=== PATIENT | male | born 1965 | race Caucasian/White ===

== ENCOUNTER 2024-05-08 03:49 | Emergency (ER) | payer MEDICAID ==
[~2024-05-08] VITALS: Ht 172.7 cm; Wt 72.6 kg
[~2024-05-08 03:49] MED LIST: CIPR500T5 PO; METR-147 PO
[2024-05-08] MEDS ORDERED: ONDANSETRON HCL/PF 4 MG/2 ML VIAL ONE ×2 (04:19→05:32)
[2024-05-08] MEDS ORDERED: DICYCLOMINE HCL INJ 20 MG/2 ML AMPUL IM ONE (04:19)
[2024-05-08 04:22] LABS: BASOPHILS # (AUTO) 0.1 K/uL (0.0-0.2); BASOPHILS % (AUTO) 0.9 % (0.0-2.0); EOSINOPHILS % (AUTO) 0.1 % (0.0-6.0); HEMATOCRIT 36 % (39-51); HEMOGLOBIN 12.8 g/dL (13.5-17.5); LYMPHOCYTES # (AUTO) 1.3 K/uL (0.8-4.8); LYMPHOCYTES % (AUTO) 12.2 % (20.0-44.0); MEAN CORPUSCULAR HEMOGLOBIN 30 PG (26.0-33.0); MEAN CORPUSCULAR HGB CONC 35 g/dl (31.0-36.0); MEAN CORPUSCULAR VOLUME 86 fL (80-96); MONOCYTES # (AUTO) 0.5 K/uL (0.1-1.30); MONOCYTES % (AUTO) 4.8 % (2.0-12.0); NEUTROPHILS # (AUTO) 8.6 K/uL (1.8-8.9); PLATELET COUNT (AUTO) 220 K/uL (150-450); RED BLOOD CELL COUNT(AUTO) 4.25 MIL/uL (4.5-6.0); RED CELL DISTRIBUTION WIDTH 13.1 % (11.5-15.0); WHITE BLOOD COUNT (AUTO) 10.4 K/uL (4.3-11.0)
[2024-05-08] MEDS: DICYCLOMINE HCL INJ 20 MG/2 ML AMPUL IM ONE (04:26)
[2024-05-08] MEDS: IV NS 0.9% 1,000 ML BAG IV ONE (04:26)
[2024-05-08] MEDS: ONDANSETRON HCL/PF 4 MG/2 ML VIAL IVP ONE (04:26)
[2024-05-08 04:36] LABS: BILIRUBIN,DIRECT 0.2 mg/dL (0.0-0.2); CALCIUM, SERUM 9.4 mg/dL (8.5-10.1); CREATININE 1.6 mg/dL (0.6-1.3); POTASSIUM 3.9 mmol/L (3.5-5.1); TOTAL PROTEIN, SERUM 6.9 g/dL (6.4-8.2)
[2024-05-08] MEDS ORDERED: MORPHINE SULFATE INJ 4 MG/ML DISP.SYRIN ONE (04:54)
[2024-05-08] MEDS: MORPHINE SULFATE INJ 2 MG/ML DISP.SYRIN IV ONE ×2 (04:57→05:41)
[2024-05-08 05:26] LABS: APPEARANCE,URINE CLEAR (CLEAR); BILIRUBIN,URINE 1+ (NEGATIVE); BLOOD, URINE 2+ Ery/uL (NEGATIVE); COLOR,URINE YELLOW (YELLOW); KETONES,URINE 2+ mg/dL (NEGATIVE); LEUKOCYTE ESTERASE ,URINE NEGATIVE (NEGATIVE); NITRITE, URINE NEGATIVE (NEGATIVE); PH,URINE 6.5 (5.0-8.0); PROTEIN,URINE 3+ mg/dl (NEGATIVE); UGLUCOSE TRACE mg/dL (NEGATIVE); UROBILINOGEN,URINE 0.2 EU/dL (0.2)
[2024-05-08] MEDS: ONDANSETRON HCL/PF 4 MG/2 ML VIAL IV ONE (05:34)
[2024-05-08] MEDS ORDERED: MORPHINE SULFATE INJ 2 MG/ML DISP.SYRIN ONE (05:37)
[2024-05-08 05:39] LABS: ADD URINE CULTURE NO; BACTERIA,URINE Rare /HPF (None Seen); SQUAMOUS EPITHELIAL CELL,UR Few /HPF (None Seen); WBC,URINE 0-2 /HPF (0-3)
[2024-05-08 09:29] VITALS: BP 182/90; TEMP 98.2; O2SAT 99
[2024-05-09] MEDS ORDERED: ONDA4TAB11 PO (12:14)
[2024-05-09] MEDS ORDERED: BENA40TA8 PO (12:14)
[2024-05-09] MEDS ORDERED: BRIM5DRO11 EACHEYE (12:14)
[2024-05-09] MEDS ORDERED: DORZ10DR11 EACHEYE (12:14)
[2024-05-09] MEDS ORDERED: LATA2.5D15 EACHEYE (12:14)
[2024-05-09] MEDS ORDERED: INSU100I26 SQ (12:14)
[2024-05-09] MEDS ORDERED: ATRO2DRO4 RIGHTEYE (20:42)
== END 2024-05-08 09:35 | disposition home or self-care (01) ==
LOC: ER 04:02
DX: R10.9 Unspecified abdominal pain (principal); R11.2 Nausea with vomiting, unspecified; E11.9 Type 2 diabetes mellitus without complications; I10 Essential (primary) hypertension
CPT/HCPCS: 99285; 74176; 96374; 71045; 96361; 96375; 93005; 82803; 96376; 85025; 80048; 82010; 83690; 80076; 81001; 36415; 84484 ×2; 82962; 36600; 96372; J2270 ×2; J2405 ×2; J7030; J0500

== ENCOUNTER 2024-05-09 01:41 | Inpatient (IN) | payer MEDICAID ==
[~2024-05-09] VITALS: Ht 172.7 cm; Wt 77.1 kg
[2024-05-09] MEDS ORDERED: ONDANSETRON HCL/PF 4 MG/2 ML VIAL ONE (02:11)
[2024-05-09] MEDS ORDERED: PANTOPRAZOLE 40 MG VIAL ONE (02:11)
[2024-05-09] MEDS: PANTOPRAZOLE 40 MG VIAL IV ONE (02:22)
[2024-05-09] MEDS: IV NS 0.9% 1,000 ML IV ONE ×2 (02:22→03:30)
[2024-05-09] MEDS: ONDANSETRON HCL/PF - ER 4 MG/2 ML VIAL IV ONE (02:22)
[2024-05-09 02:24] LABS: BASOPHILS # (AUTO) 0.1 K/uL (0.0-0.2); BASOPHILS % (AUTO) 0.5 % (0.0-2.0); EOSINOPHILS % (AUTO) 0.2 % (0.0-6.0); HEMATOCRIT 36 % (39-51); HEMOGLOBIN 12.8 g/dL (13.5-17.5); LYMPHOCYTES # (AUTO) 1.2 K/uL (0.8-4.8); LYMPHOCYTES % (AUTO) 11.9 % (20.0-44.0); MEAN CORPUSCULAR HEMOGLOBIN 30 PG (26.0-33.0); MEAN CORPUSCULAR HGB CONC 36 g/dl (31.0-36.0); MEAN CORPUSCULAR VOLUME 85 fL (80-96); MONOCYTES # (AUTO) 0.7 K/uL (0.1-1.30); MONOCYTES % (AUTO) 6.7 % (2.0-12.0); NEUTROPHILS # (AUTO) 8.2 K/uL (1.8-8.9); NEUTROPHILS % (AUTO) 80.7 % (43.0-81.0); PLATELET COUNT (AUTO) 220 K/uL (150-450); RED BLOOD CELL COUNT(AUTO) 4.22 MIL/uL (4.5-6.0); RED CELL DISTRIBUTION WIDTH 13.1 % (11.5-15.0); WHITE BLOOD COUNT (AUTO) 10.2 K/uL (4.3-11.0)
[2024-05-09] MEDS: hydrALAZINE HCL IV 20 MG VIAL IV ONE (02:30)
[2024-05-09] MEDS ORDERED: hydrALAZINE HCL IV 20 MG VIAL ONE (02:31)
[2024-05-09 02:35] LABS: CALCIUM, SERUM 9.3 mg/dL (8.5-10.1); CARBON DIOXIDE 30 mmol/L (21-32); CHLORIDE 103 mmol/L (98-107); CREATININE 1.7 mg/dL (0.6-1.3); GLUCOSE 296 mg/dL (74-106); SODIUM SERUM 140 mmol/L (136-145); UREA NITROGEN, BLOOD 25 mg/dL (7-18)
[2024-05-09 02:40] LABS: ALANINE AMINOTRANSFERASE 14 U/L (12-78); ALBUMIN 2.9 g/dL (3.4-5.0); ALCOHOL, BLOOD < 3 mg/dL (0-10); ALKALINE PHOSPHATASE 72 U/L (46-116); ASPARTATE AMINOTRANSFERASE 17 U/L (15-37); LIPASE 61 U/L (16-77); TOTAL PROTEIN, SERUM 6.7 g/dL (6.4-8.2)
[2024-05-09 02:44] LABS: LACTIC ACID 2.5 mmol/L (0.4-2.0)
[2024-05-09] MEDS ORDERED: KETOROLAC TROMETHAMINE INJ 30 MG/ML VIAL ONE (03:21)
[2024-05-09] MEDS: KETOROLAC TROMETHAMINE INJ 30 MG/ML VIAL IV ONE (03:22)
[2024-05-09] MEDS ORDERED: METOCLOPRAMIDE HCL 10 MG/2 ML VIAL ONE (04:00)
[2024-05-09] MEDS: METOCLOPRAMIDE HCL 10 MG/2 ML VIAL IV ONE (04:05)
[2024-05-09] MEDS ORDERED: CEFTRIAXONE 1GM BAG (ER ONLY) 50 ML IV ONE (04:26)
[2024-05-09] MEDS: CEFTRIAXONE 1 G in IV D5W 50 ML IV ONE (04:30)
[2024-05-09 04:46] LABS: APPEARANCE,URINE CLEAR (CLEAR); BILIRUBIN,URINE NEGATIVE (NEGATIVE); BLOOD, URINE 3+ Ery/uL (NEGATIVE); COLOR,URINE YELLOW (YELLOW); KETONES,URINE 1+ mg/dL (NEGATIVE); LEUKOCYTE ESTERASE ,URINE NEGATIVE (NEGATIVE); NITRITE, URINE NEGATIVE (NEGATIVE); PH,URINE 6.5 (5.0-8.0); PROTEIN,URINE 3+ mg/dl (NEGATIVE); UGLUCOSE 3+ mg/dL (NEGATIVE); UROBILINOGEN,URINE 0.2 EU/dL (0.2)
[2024-05-09 05:16] LABS: ADD URINE CULTURE NO; BACTERIA,URINE None seen /HPF (None Seen); MUCUS,URINE Many /LPF (None Seen); SQUAMOUS EPITHELIAL CELL,UR None Seen /HPF (None Seen); WBC,URINE NONE SEEN /HPF (0-3)
[2024-05-09 05:19] LABS: AMPHETAMINE, URINE NEGATIVE (NEGATIVE); BARBITURATE, URINE NEGATIVE (NEGATIVE); BENZODIAZEPINE, URINE NEGATIVE (NEGATIVE); CANNABINOID, URINE NEGATIVE (NEGATIVE); COCCAINE, URINE NEGATIVE (NEGATIVE); PHENCYCLIDINE SCREEN,URINE NEGATIVE (NEGATIVE)
[2024-05-09 05:47] LABS: OPIATE, URINE POSITIVE (NEGATIVE)
[2024-05-09] MEDS ORDERED: LABETALOL HCL IV 100MG VIAL ONE (08:00)
[2024-05-09] MEDS ORDERED: MORPHINE SULFATE INJ 4 MG/ML DISP.SYRIN ONE (08:07)
[2024-05-09] MEDS: LABETALOL 20 MG/4 ML VIAL IV ONE (08:22)
[2024-05-09] MEDS: MORPHINE SULFATE INJ 2 MG/ML DISP.SYRIN IM ONE (08:23)
[2024-05-09] MEDS ORDERED: DEXTROSE 50%-WATER 50 ML DISP.SYRIN IV PRN (11:30)
[2024-05-09] MEDS ORDERED: BRIM5DRO11 EACHEYE (12:14)
[2024-05-09] MEDS ORDERED: DORZ10DR11 EACHEYE (12:14)
[2024-05-09] MEDS ORDERED: INSU100I26 SQ (12:14)
[2024-05-09] MEDS ORDERED: BENA40TA8 PO (12:14)
[2024-05-09] MEDS ORDERED: ONDA4TAB11 PO (12:14)
[2024-05-09] MEDS ORDERED: LATA2.5D15 EACHEYE (12:14)
[2024-05-09] MEDS: BLOOD SUGAR DIAGNOSTIC 1 EACH STRIP IN SCH (12:44)
[2024-05-09] MEDS ORDERED: ENOXAPARIN SODIUM 40 MG/0.4 ML DISP.SYRIN SQ ONE (13:02)
[2024-05-09] MEDS ORDERED: BENAZEPRIL HCL 10 MG TABLET ONE (13:02)
[2024-05-09] MEDS: ENOXAPARIN SODIUM 40 MG/0.4 ML DISP.SYRIN SQ SCH (13:06)
[2024-05-09] MEDS: BENAZEPRIL HCL 10 MG TABLET PO ONE (13:06)
[2024-05-09 13:45] VITALS: BP 170/95; TEMP 98.2; O2SAT 97
[2024-05-09] MEDS: PANTOPRAZOLE 40 MG VIAL IV SCH (14:44)
[2024-05-09] MEDS: IV NS 0.9% 1,000 ML IV PRN (14:47)
[2024-05-09] MEDS: ONDANSETRON HCL/PF 4 MG/2 ML VIAL IVP PRN (15:50)
[2024-05-09 16:28] VITALS: BP 178/87; TEMP 99; O2SAT 99
[2024-05-09] MEDS: INSULIN REGULAR, HUMAN 100 UNIT/ML 3 ML VIAL SQ PRN (16:45)
[2024-05-09] MEDS: hydrALAZINE HCL 25 MG TABLET PO ONE (17:30)
[2024-05-09] MEDS: ACETAMINOPHEN 325 MG TABLET PO PRN (17:34)
[2024-05-09 20:00] VITALS: BP 121/58; TEMP 99.3; O2SAT 98
[2024-05-09] MEDS: MORPHINE SULFATE INJ 2 MG/ML DISP.SYRIN IV PRN (20:01)
[2024-05-09 20:19] VITALS: BP 121/58; TEMP 99.3; O2SAT 98
[2024-05-09] MEDS ORDERED: ATRO2DRO4 RIGHTEYE (20:42)
[2024-05-09] MEDS: INSULIN GLARGINE, 100 UNIT/ML CARTRIDGE SQ SCH (21:25)
[2024-05-10] MEDS ORDERED: CEFTRIAXONE 1GM BAG (ER ONLY) 50 ML IV ONE (03:21)
[2024-05-10] MEDS: CEFTRIAXONE 1 G in IV D5W 50 ML IV SCH (03:49)
[2024-05-10 06:15] LABS: BASOPHILS # (AUTO) 0.1 K/uL (0.0-0.2); EOSINOPHILS # (AUTO) 0.1 K/uL (0.0-0.7); EOSINOPHILS % (AUTO) 1.1 % (0.0-6.0); HEMATOCRIT 29 % (39-51); HEMOGLOBIN 10.3 g/dL (13.5-17.5); LYMPHOCYTES # (AUTO) 1.9 K/uL (0.8-4.8); LYMPHOCYTES % (AUTO) 23.1 % (20.0-44.0); MEAN CORPUSCULAR HEMOGLOBIN 31 PG (26.0-33.0); MEAN CORPUSCULAR HGB CONC 36 g/dl (31.0-36.0); MEAN CORPUSCULAR VOLUME 86 fL (80-96); MONOCYTES # (AUTO) 0.8 K/uL (0.1-1.30); MONOCYTES % (AUTO) 9.1 % (2.0-12.0); NEUTROPHILS # (AUTO) 5.5 K/uL (1.8-8.9); NEUTROPHILS % (AUTO) 65.7 % (43.0-81.0); PLATELET COUNT (AUTO) 171 K/uL (150-450); RED BLOOD CELL COUNT(AUTO) 3.33 MIL/uL (4.5-6.0); RED CELL DISTRIBUTION WIDTH 12.9 % (11.5-15.0); WHITE BLOOD COUNT (AUTO) 8.3 K/uL (4.3-11.0)
[2024-05-10 06:32] LABS: CALCIUM, SERUM 8.2 mg/dL (8.5-10.1); CREATININE 1.6 mg/dL (0.6-1.3); MAGNESIUM 2.1 mg/dL (1.8-2.4); PHOSPHORUS 3.6 mg/dL (2.5-4.9); POTASSIUM 3.2 mmol/L (3.5-5.1)
[2024-05-10 07:00] VITALS: BP 155/84; TEMP 99; O2SAT 99
[2024-05-10] MEDS: PANTOPRAZOLE 40 MG TABLET.DR PO SCH (08:32)
[2024-05-10] MEDS ORDERED: POTASSIUM CHLORIDE 20 MEQ TAB.PRT.SR PO ONE (09:00)
[2024-05-10] MEDS ORDERED: POTASSIUM CHLORIDE 10 MEQ/50 ML PREMIXED IVPB FOR PERIPHERAL LINE IV ONE (09:00)
[2024-05-10] MEDS: IV NS 0.9% 1,000 ML IV PRN (09:37)
[2024-05-10] MEDS: POTASSIUM CHLORIDE 20 MEQ POWDER PACKET PO ONE (09:38)
[2024-05-10] MEDS: ATROPINE SULFATE OPHTH SOLN 15 ML BOTTLE RIGHTEYE SCH (09:39)
[2024-05-10] MEDS: TIMOLOL MAL/DORZOLAM HCL OPHTH 10 ML BOTTLE EACHEYE SCH (09:40)
[2024-05-10] MEDS: PIPERACILLIN /TAZOBACTAM 3.375 G in IV D5W 50 ML IV SCH (11:38)
[2024-05-10 16:00] VITALS: BP 190/101; TEMP 98.2; O2SAT 98
[2024-05-10] MEDS: BRIMONIDINE TARTRATE OPHT SOLN 5 ML BOTTLE EACHEYE SCH (16:27)
[2024-05-10] MEDS: CLONIDINE HCL 0.1 MG TABLET PO PRN (17:35)
[2024-05-10 20:00] VITALS: BP 187/98; TEMP 97.9; O2SAT 99
[2024-05-10] MEDS: AMLODIPINE BESYLATE 5 MG TABLET PO ONE (20:54)
[2024-05-10] MEDS: LATANOPROST EYE DROP 0.005% 2.5 ML BOTTLE EACHEYE SCH (21:06)
[2024-05-10] MEDS: INSULIN GLARGINE, 100 UNIT/ML CARTRIDGE SQ SCH (21:25)
[2024-05-10] MEDS: TAMSULOSIN 0.4 MG CAP.SR.24H PO SCH (22:24)
[2024-05-10 23:37] LABS: APPEARANCE,URINE CLEAR (CLEAR); BILIRUBIN,URINE NEGATIVE (NEGATIVE); BLOOD, URINE 1+ Ery/uL (NEGATIVE); COLOR,URINE YELLOW (YELLOW); KETONES,URINE NEGATIVE (NEGATIVE); LEUKOCYTE ESTERASE ,URINE NEGATIVE (NEGATIVE); NITRITE, URINE NEGATIVE (NEGATIVE); PROTEIN,URINE 2+ mg/dl (NEGATIVE); UGLUCOSE TRACE mg/dL (NEGATIVE); UROBILINOGEN,URINE 0.2 EU/dL (0.2)
[2024-05-10 23:40] LABS: ADD URINE CULTURE NO; BACTERIA,URINE Rare /HPF (None Seen); SQUAMOUS EPITHELIAL CELL,UR Rare /HPF (None Seen); WBC,URINE 0-2 /HPF (0-3)
[2024-05-11 00:10] VITALS: BP 143/79; TEMP 98.2; O2SAT 100
[2024-05-11 06:37] LABS: BASOPHILS # (AUTO) 0.1 K/uL (0.0-0.2); BASOPHILS % (AUTO) 0.8 % (0.0-2.0); EOSINOPHILS # (AUTO) 0.2 K/uL (0.0-0.7); EOSINOPHILS % (AUTO) 2.9 % (0.0-6.0); HEMATOCRIT 28 % (39-51); LYMPHOCYTES # (AUTO) 1.7 K/uL (0.8-4.8); LYMPHOCYTES % (AUTO) 20.7 % (20.0-44.0); MEAN CORPUSCULAR HEMOGLOBIN 30 PG (26.0-33.0); MEAN CORPUSCULAR HGB CONC 35 g/dl (31.0-36.0); MEAN CORPUSCULAR VOLUME 85 fL (80-96); MONOCYTES # (AUTO) 0.6 K/uL (0.1-1.30); MONOCYTES % (AUTO) 7.1 % (2.0-12.0); NEUTROPHILS # (AUTO) 5.7 K/uL (1.8-8.9); NEUTROPHILS % (AUTO) 68.5 % (43.0-81.0); PLATELET COUNT (AUTO) 159 K/uL (150-450); RED BLOOD CELL COUNT(AUTO) 3.33 MIL/uL (4.5-6.0); RED CELL DISTRIBUTION WIDTH 13.2 % (11.5-15.0); WHITE BLOOD COUNT (AUTO) 8.3 K/uL (4.3-11.0)
[2024-05-11 07:19] LABS: ALBUMIN 2.2 g/dL (3.4-5.0); BILIRUBIN,TOTAL 0.6 mg/dL (0.2-1.0); CALCIUM, SERUM 8.2 mg/dL (8.5-10.1); CREATININE 1.4 mg/dL (0.6-1.3); MAGNESIUM 1.8 mg/dL (1.8-2.4); POTASSIUM 3.2 mmol/L (3.5-5.1); TOTAL PROTEIN, SERUM 4.8 g/dL (6.4-8.2)
[2024-05-11 08:42] VITALS: BP 140/86; TEMP 98.9; O2SAT 97
[2024-05-11] MEDS ORDERED: AMLO10TA4 PO (09:30)
[2024-05-11] MEDS ORDERED: METR500T PO (09:30)
[2024-05-11] MEDS ORDERED: TAMS-12 PO (09:30)
[2024-05-11] MEDS ORDERED: CIPR500S3 PO (09:30)
[2024-05-11] MEDS: POTASSIUM CHLORIDE 20 MEQ TAB.PRT.SR PO ONE (09:35)
[2024-05-11 09:36] VITALS: BP 140/86
[2024-05-11] MEDS: AMLODIPINE BESYLATE 5 MG TABLET PO SCH (09:36)
== END 2024-05-11 15:15 | disposition home or self-care (01) | DRG 248 ==
LOC: ER 01:46 → MED 13:21
PROVIDERS: ADMIT Nurse Practitioner Acute Care; ATTEND Internal Medicine
DX: A04.9 Bacterial intestinal infection, unspecified (principal); N17.0 Acute kidney failure with tubular necrosis; E11.43 Type 2 diabetes mellitus with diabetic autonomic (poly)neuropathy; K31.84 Gastroparesis; Z20.822 Contact with and (suspected) exposure to COVID-19; H40.9 Unspecified glaucoma; E86.0 Dehydration; E87.6 Hypokalemia; Z79.4 Long term (current) use of insulin; I10 Essential (primary) hypertension; K22.9 Disease of esophagus, unspecified; Z98.890 Other specified postprocedural states; Z79.899 Other long term (current) drug therapy
CPT/HCPCS: 36415; 71045-TC; 76770-TC; 80048-TC; 80053-TC; 80061-TC; 81001; 82010-TC; 82962-TC; 83605-TC; 83690-TC; 83735-TC; 84100-TC; 85025-TC; 87040-TC; 87086-TC; A4223; G0378; G0480; J0360; J0696; J1650; J1815; J1885; J2270; J2405; J2470; J2543; J2765; J3490; J7030; J7060

== ENCOUNTER 2024-05-16 12:57 | Emergency (ER) | payer MEDICAID ==
[~2024-05-16] VITALS: Ht 172.7 cm; Wt 77.1 kg
[~2024-05-16 12:57] MED LIST changes: +AMLO10TA4 PO; +ATRO2DRO4 RIGHTEYE; +BRIM5DRO11 EACHEYE; +CIPR500S3 PO; -CIPR500T5 PO; +DORZ10DR11 EACHEYE; +INSU100I26 SQ; +LATA2.5D15 EACHEYE; +METR500T PO; +ONDA4TAB11 PO; +TAMS-12 PO
[2024-05-16] MEDS ORDERED: ONDANSETRON HCL/PF 4 MG/2 ML VIAL ONE ×2 (13:30→14:33)
[2024-05-16] MEDS: ONDANSETRON HCL/PF 4 MG/2 ML VIAL IVP ONE ×2 (13:38→14:36)
[2024-05-16] MEDS: IV NS 0.9% 1,000 ML BAG IV ONE (13:39)
--- NOTE | 2024-05-16 13:45 | NUR ---
Patient came in to the [facility] from home, c/o abd pain. Connected to the monitor and pulse ox, kept comfortable, will continue plan of care.
[2024-05-16 13:47] LABS: BASOPHILS # (AUTO) 0.1 K/uL (0.0-0.2); BASOPHILS % (AUTO) 0.8 % (0.0-2.0); EOSINOPHILS # (AUTO) 0.1 K/uL (0.0-0.7); EOSINOPHILS % (AUTO) 1.7 % (0.0-6.0); HEMATOCRIT 31 % (39-51); HEMOGLOBIN 11.1 g/dL (13.5-17.5); LYMPHOCYTES # (AUTO) 0.9 K/uL (0.8-4.8); LYMPHOCYTES % (AUTO) 14.5 % (20.0-44.0); MEAN CORPUSCULAR HEMOGLOBIN 31 PG (26.0-33.0); MEAN CORPUSCULAR HGB CONC 36 g/dl (31.0-36.0); MEAN CORPUSCULAR VOLUME 86 fL (80-96); MONOCYTES # (AUTO) 0.5 K/uL (0.1-1.30); MONOCYTES % (AUTO) 7.5 % (2.0-12.0); NEUTROPHILS # (AUTO) 4.8 K/uL (1.8-8.9); NEUTROPHILS % (AUTO) 75.5 % (43.0-81.0); PLATELET COUNT (AUTO) 172 K/uL (150-450); RED BLOOD CELL COUNT(AUTO) 3.59 MIL/uL (4.5-6.0); RED CELL DISTRIBUTION WIDTH 13.6 % (11.5-15.0); WHITE BLOOD COUNT (AUTO) 6.4 K/uL (4.3-11.0)
[2024-05-16 13:59] LABS: CALCIUM, SERUM 8.3 mg/dL (8.5-10.1); CREATININE 1.3 mg/dL (0.6-1.3); POTASSIUM 3.6 mmol/L (3.5-5.1)
[2024-05-16 14:05] LABS: ALBUMIN 2.5 g/dL (3.4-5.0); BILIRUBIN,DIRECT 0.1 mg/dL (0.0-0.2); BILIRUBIN,TOTAL 0.5 mg/dL (0.2-1.0); TOTAL PROTEIN, SERUM 5.6 g/dL (6.4-8.2)
[2024-05-16] MEDS ORDERED: CT SWABBABLE VALVE TRANS SET 1 EA INFUS.SET MC ONE (14:30)
[2024-05-16] MEDS ORDERED: IOHEXOL-300 100 ML VIAL IV ONE (14:30)
[2024-05-16] MEDS ORDERED: IV NS 0.9% 250 ML IV ONE (14:31)
[2024-05-16] MEDS ORDERED: KETOROLAC TROMETHAMINE 15 MG/ML VIAL ONE (14:33)
[2024-05-16] MEDS: KETOROLAC TROMETHAMINE 15 MG/ML VIAL IV ONE (14:35)
[2024-05-16 15:25] VITALS: BP 138/79; TEMP 97.8; O2SAT 98
[2024-05-16] MEDS ORDERED: AZIT500T4 PO (15:28)
[2024-05-16] MEDS ORDERED: KETO10TA2 PO (15:29)
[2024-05-16] MEDS ORDERED: METO-295 PO (15:29)
--- NOTE | 2024-05-16 15:36 | NUR ---
IV removed. Catheter intact and site benign. Pressure and 4x4 applied to site. No bleeding noted.Patient discharged to home in stable condition. Written and verbal after care instructions given. Patient verbalizes understanding of instruction.
== END 2024-05-16 15:38 | disposition home or self-care (01) ==
LOC: ER 13:04
DX: K52.9 Noninfective gastroenteritis and colitis, unspecified (principal); R10.9 Unspecified abdominal pain; R11.2 Nausea with vomiting, unspecified; I10 Essential (primary) hypertension; E11.9 Type 2 diabetes mellitus without complications; Z60.2 Problems related to living alone
CPT/HCPCS: 99285; 74177; 96374; 96361; 96375; 96376; 85025; 80048; 83690; 80076; 36415; J2405 ×2; J7030; J7050; Q9967; J1885

== ENCOUNTER 2024-06-06 11:10 | Emergency (ER) | payer MEDICAID ==
[~2024-06-06] VITALS: Ht 172.7 cm; Wt 78.5 kg
[~2024-06-06 11:10] MED LIST changes: +AZIT500T4 PO; +KETO10TA2 PO; +METO-295 PO
[2024-06-06 11:19] VITALS: TEMP 98
[2024-06-06] MEDS ORDERED: HYDROMORPHONE INJ 2 MG/ML DISP.SYRIN IV ONE (12:30)
[2024-06-06] MEDS ORDERED: MORPHINE SULFATE INJ 4 MG/ML DISP.SYRIN ONE (12:39)
[2024-06-06] MEDS ORDERED: ONDANSETRON HCL/PF 4 MG/2 ML VIAL ONE (12:39)
[2024-06-06] MEDS: IV NS 0.9% 1,000 ML BAG IV ONE ×2 (12:45→15:22)
[2024-06-06] MEDS: ONDANSETRON HCL/PF 4 MG/2 ML VIAL IVP ONE (12:45)
[2024-06-06] MEDS: MORPHINE SULFATE INJ 2 MG/ML DISP.SYRIN IV ONE (12:47)
[2024-06-06 12:56] LABS: CARBON DIOXIDE 26 mmol/L (21-32); CHLORIDE 99 mmol/L (98-107); CREATININE 1.4 mg/dL (0.6-1.3); GLUCOSE 302 mg/dL (74-106); POTASSIUM 4.2 mmol/L (3.5-5.1); SODIUM SERUM 139 mmol/L (136-145); UREA NITROGEN, BLOOD 26 mg/dL (7-18)
[2024-06-06 13:03] LABS: ALANINE AMINOTRANSFERASE 21 U/L (12-78); ALBUMIN 3.1 g/dL (3.4-5.0); ALKALINE PHOSPHATASE 68 U/L (46-116); ASPARTATE AMINOTRANSFERASE 34 U/L (15-37); BILIRUBIN,DIRECT 0.1 mg/dL (0.0-0.2); BILIRUBIN,TOTAL 1.2 mg/dL (0.2-1.0); LIPASE 44 U/L (16-77); TOTAL PROTEIN, SERUM 7.1 g/dL (6.4-8.2)
[2024-06-06 13:12] LABS: BASOPHILS # (AUTO) 0.1 K/uL (0.0-0.2); BASOPHILS % (AUTO) 0.9 % (0.0-2.0); EOSINOPHILS % (AUTO) 0.3 % (0.0-6.0); HEMATOCRIT 37 % (39-51); LYMPHOCYTES # (AUTO) 0.9 K/uL (0.8-4.8); LYMPHOCYTES % (AUTO) 10.5 % (20.0-44.0); MEAN CORPUSCULAR HEMOGLOBIN 30 PG (26.0-33.0); MEAN CORPUSCULAR HGB CONC 35 g/dl (31.0-36.0); MEAN CORPUSCULAR VOLUME 85 fL (80-96); MONOCYTES # (AUTO) 0.4 K/uL (0.1-1.30); MONOCYTES % (AUTO) 4.6 % (2.0-12.0); NEUTROPHILS % (AUTO) 83.7 % (43.0-81.0); PLATELET COUNT (AUTO) 238 K/uL (150-450); RED BLOOD CELL COUNT(AUTO) 4.31 MIL/uL (4.5-6.0); RED CELL DISTRIBUTION WIDTH 13.8 % (11.5-15.0); WHITE BLOOD COUNT (AUTO) 8.4 K/uL (4.3-11.0)
[2024-06-06] MEDS ORDERED: IV NS 0.9% 250 ML IV ONE (13:33)
[2024-06-06] MEDS ORDERED: CT SWABBABLE VALVE TRANS SET 1 EA INFUS.SET MC ONE (13:33)
[2024-06-06] MEDS ORDERED: IOHEXOL-300 100 ML VIAL IV ONE (13:33)
[2024-06-06] MEDS ORDERED: hydrALAZINE HCL IV 20 MG VIAL ONE ×2 (13:59→15:09)
[2024-06-06] MEDS: hydrALAZINE HCL IV 20 MG VIAL IV ONE (14:00)
[2024-06-06] MEDS: HYDROMORPHONE 1 MG/1 ML DISP.SYRIN IV ONE (15:00)
[2024-06-06] MEDS ORDERED: HYDROMORPHONE 1 MG/1 ML DISP.SYRIN ONE (15:00)
[2024-06-06] MEDS ORDERED: METOCLOPRAMIDE HCL 10 MG/2 ML VIAL ONE (15:09)
[2024-06-06] MEDS: METOCLOPRAMIDE HCL 10 MG/2 ML VIAL IV ONE (15:14)
[2024-06-06] MEDS ORDERED: diphenhydrAMINE HCL 50 MG/ML VIAL ONE (15:23)
[2024-06-06] MEDS: diphenhydrAMINE HCL 50 MG/ML VIAL IV ONE (15:26)
[2024-06-06] MEDS: hydrALAZINE HCL 10 MG TABLET PO ONE (15:30)
[2024-06-06] MEDS ORDERED: METO-295 PO (17:33)
[2024-06-06] MEDS ORDERED: ONDA4TAB5 PO (17:33)
[2024-06-06 17:42] VITALS: BP 124/78; O2SAT 95
== END 2024-06-06 17:43 | disposition home or self-care (01) ==
LOC: ER 11:18
DX: R10.10 Upper abdominal pain, unspecified (principal); R11.2 Nausea with vomiting, unspecified; R19.7 Diarrhea, unspecified; I10 Essential (primary) hypertension; E11.9 Type 2 diabetes mellitus without complications; Z60.2 Problems related to living alone
CPT/HCPCS: 99285; 74176; 96375; 96374; 71045; 96361; 93005; 85025; 80048; 83690; 80076; 36415; 84484 ×2; 82962; J1200; J0360; J2270; J2765; J2405; J7030; J7050; Q9967; J1170

== ENCOUNTER 2024-06-09 05:44 | Inpatient (IN) | payer MEDICAID ==
[~2024-06-09] VITALS: Ht 172.7 cm; Wt 64.4 kg
[~2024-06-09 05:44] MED LIST changes: +ONDA4TAB5 PO
[2024-06-09 06:17] LABS: BASOPHILS # (AUTO) 0.1 K/uL (0.0-0.2); BASOPHILS % (AUTO) 0.6 % (0.0-2.0); EOSINOPHILS % (AUTO) 0.2 % (0.0-6.0); HEMATOCRIT 40 % (39-51); LYMPHOCYTES # (AUTO) 1.4 K/uL (0.8-4.8); LYMPHOCYTES % (AUTO) 14.1 % (20.0-44.0); MEAN CORPUSCULAR HEMOGLOBIN 30 PG (26.0-33.0); MEAN CORPUSCULAR HGB CONC 35 g/dl (31.0-36.0); MEAN CORPUSCULAR VOLUME 85 fL (80-96); MONOCYTES # (AUTO) 0.5 K/uL (0.1-1.30); NEUTROPHILS # (AUTO) 7.8 K/uL (1.8-8.9); NEUTROPHILS % (AUTO) 80.1 % (43.0-81.0); PLATELET COUNT (AUTO) 267 K/uL (150-450); RED CELL DISTRIBUTION WIDTH 13.8 % (11.5-15.0); WHITE BLOOD COUNT (AUTO) 9.7 K/uL (4.3-11.0)
[2024-06-09] MEDS ORDERED: ONDANSETRON HCL/PF 4 MG/2 ML VIAL ONE (06:24)
[2024-06-09] MEDS ORDERED: PANTOPRAZOLE 40 MG VIAL ONE (06:24)
[2024-06-09 06:27] LABS: CALCIUM, SERUM 9.3 mg/dL (8.5-10.1); CREATININE 1.4 mg/dL (0.6-1.3); POTASSIUM 3.4 mmol/L (3.5-5.1)
[2024-06-09] MEDS: PANTOPRAZOLE 40 MG VIAL IV ONE (06:31)
[2024-06-09] MEDS: IV NS 0.9% 1,000 ML BAG IV ONE (06:31)
[2024-06-09] MEDS: ONDANSETRON HCL/PF 4 MG/2 ML VIAL IVP ONE (06:31)
[2024-06-09 06:33] LABS: ALBUMIN 3.1 g/dL (3.4-5.0); BILIRUBIN,DIRECT 0.2 mg/dL (0.0-0.2); BILIRUBIN,TOTAL 1.2 mg/dL (0.2-1.0); TOTAL PROTEIN, SERUM 6.9 g/dL (6.4-8.2)
[2024-06-09] MEDS: MAG HYDROX/AL HYDROX/SIMETH 30 ML UDC PO ONE (06:41)
[2024-06-09] MEDS ORDERED: MAG HYDROX/AL HYDROX/SIMETH 30 ML UDC ONE (06:41)
[2024-06-09] MEDS ORDERED: LIDOCAINE VISCOUS 2% UD 15 ML UDC ONE (06:41)
[2024-06-09] MEDS: LIDOCAINE VISCOUS 2% UD 15 ML UDC MM ONE (06:41)
[2024-06-09] MEDS ORDERED: LABETALOL HCL IV 100MG VIAL ONE (06:55)
[2024-06-09 06:57] LABS: INR 0.98 (0.91-1.10); PARTIAL THROMBOPLASTIN TIME 21.9 SEC (24.3-34.3); PROTHROMBIN TIME 10.4 SECS (9.2-11.1)
[2024-06-09] MEDS: LABETALOL 20 MG/4 ML VIAL IV ONE (06:58)
[2024-06-09] MEDS ORDERED: METOCLOPRAMIDE HCL 10 MG/2 ML VIAL ONE (09:00)
[2024-06-09] MEDS ORDERED: hydrALAZINE HCL IV 20 MG VIAL ONE (09:00)
[2024-06-09] MEDS: METOCLOPRAMIDE HCL 10 MG/2 ML VIAL IV ONE (09:00)
[2024-06-09] MEDS: hydrALAZINE HCL IV 20 MG VIAL IV ONE (09:05)
[2024-06-09] MEDS ORDERED: MORPHINE SULFATE INJ 4 MG/ML DISP.SYRIN ONE (10:15)
[2024-06-09] MEDS: MORPHINE SULFATE INJ 2 MG/ML DISP.SYRIN IV ONE (10:21)
[2024-06-09] MEDS ORDERED: BENA40TA8 PO (10:38)
[2024-06-09 10:40] LABS: APPEARANCE,URINE CLEAR (CLEAR); BILIRUBIN,URINE NEGATIVE (NEGATIVE); BLOOD, URINE 2+ Ery/uL (NEGATIVE); COLOR,URINE YELLOW (YELLOW); KETONES,URINE TRACE mg/dL (NEGATIVE); LEUKOCYTE ESTERASE ,URINE NEGATIVE (NEGATIVE); NITRITE, URINE NEGATIVE (NEGATIVE); PROTEIN,URINE 3+ mg/dl (NEGATIVE); UGLUCOSE 2+ mg/dL (NEGATIVE); UROBILINOGEN,URINE 0.2 EU/dL (0.2)
[2024-06-09 10:55] LABS: ADD URINE CULTURE NO; BACTERIA,URINE None seen /HPF (None Seen)
[2024-06-09 10:56] LABS: FINE GRANULAR CASTS,URINE Few /LPF (None Seen); HYALINE CASTS, URINE Few /LPF (None Seen); SQUAMOUS EPITHELIAL CELL,UR 0-2 /HPF (None Seen); TRICHOMONAS,URINE None Seen /HPF (None Seen); YEAST,URINE None Seen /HPF (None Seen)
[2024-06-09 10:57] LABS: MUCUS,URINE Many /LPF (None Seen)
[2024-06-09 11:02] LABS: AMPHETAMINE, URINE NEGATIVE (NEGATIVE); BARBITURATE, URINE NEGATIVE (NEGATIVE); BENZODIAZEPINE, URINE NEGATIVE (NEGATIVE); CANNABINOID, URINE NEGATIVE (NEGATIVE); COCCAINE, URINE NEGATIVE (NEGATIVE); OPIATE, URINE NEGATIVE (NEGATIVE); PHENCYCLIDINE SCREEN,URINE NEGATIVE (NEGATIVE)
[2024-06-09] MEDS ORDERED: DEXTROSE 50%-WATER 50 ML DISP.SYRIN IV PRN (14:00)
[2024-06-09] MEDS ORDERED: ONDANSETRON HCL/PF 4 MG/2 ML VIAL IV PRN (14:00)
[2024-06-09] MEDS ORDERED: *INSULIN REGULAR(HUMULIN R)HUM 100 UNIT/ML VIAL SQ PRN (14:00)
[2024-06-09] MEDS ORDERED: HYDROMORPHONE MDV 0.5 MG in IV D5W 50 ML IV PRN (14:00)
[2024-06-09] MEDS: TAMSULOSIN 0.4 MG CAP.SR.24H PO SCH (14:06)
[2024-06-09] MEDS: PANTOPRAZOLE 40 MG VIAL IV SCH (14:06)
[2024-06-09] MEDS: CLONIDINE HCL 0.1 MG TABLET PO PRN (15:04)
[2024-06-09] MEDS: HYDROCODONE/APAP 5/325MG TABLET PO PRN (15:04)
[2024-06-09 16:00] VITALS: BP 162/86; TEMP 98.6; O2SAT 97
[2024-06-09] MEDS: BRIMONIDINE TARTRATE OPHT SOLN 5 ML BOTTLE EACHEYE SCH (16:11)
[2024-06-09] MEDS: ATROPINE SULFATE OPHTH SOLN 15 ML BOTTLE RIGHTEYE SCH (16:11)
[2024-06-09] MEDS: TIMOLOL MAL/DORZOLAM HCL OPHTH 10 ML BOTTLE EACHEYE SCH (16:11)
[2024-06-09] MEDS: BLOOD SUGAR DIAGNOSTIC 1 EACH STRIP VI SCH (16:41)
[2024-06-09] MEDS: INSULIN REGULAR, HUMAN 100 UNIT/ML 3 ML VIAL SQ PRN (16:43)
[2024-06-09] MEDS ORDERED: BRIMONIDINE TARTRATE EACHEYE SCH ×4 (17:00)
[2024-06-09] MEDS ORDERED: ANESTHESIA TRAY IN PYXIS 1 EA TRAY MC ONE (19:32)
[2024-06-09] MEDS: INSULIN GLARGINE, 100 UNIT/ML CARTRIDGE SQ SCH (21:52)
[2024-06-09] MEDS: LATANOPROST EYE DROP 0.005% 2.5 ML BOTTLE EACHEYE SCH (21:54)
[2024-06-09] MEDS: ZOLPIDEM TARTRATE 5 MG TABLET PO PRN (22:29)
[2024-06-09 22:30] VITALS: BP 137/80; TEMP 97.7; O2SAT 98
[2024-06-10] VITALS: BP 127/74; TEMP 98.2; O2SAT 96
[2024-06-10] MEDS: METOCLOPRAMIDE HCL 10 MG/2 ML VIAL IV PRN (03:20)
[2024-06-10 04:37] VITALS: BP 138/82; TEMP 98.4; O2SAT 96
[2024-06-10 06:26] LABS: BASOPHILS # (AUTO) 0.1 K/uL (0.0-0.2); BASOPHILS % (AUTO) 0.7 % (0.0-2.0); EOSINOPHILS # (AUTO) 0.1 K/uL (0.0-0.7); EOSINOPHILS % (AUTO) 1.1 % (0.0-6.0); HEMATOCRIT 27 % (39-51); HEMOGLOBIN 9.9 g/dL (13.5-17.5); LYMPHOCYTES # (AUTO) 1.8 K/uL (0.8-4.8); LYMPHOCYTES % (AUTO) 25.6 % (20.0-44.0); MEAN CORPUSCULAR HEMOGLOBIN 31 PG (26.0-33.0); MEAN CORPUSCULAR HGB CONC 36 g/dl (31.0-36.0); MEAN CORPUSCULAR VOLUME 86 fL (80-96); MONOCYTES # (AUTO) 0.5 K/uL (0.1-1.30); MONOCYTES % (AUTO) 7.7 % (2.0-12.0); NEUTROPHILS # (AUTO) 4.5 K/uL (1.8-8.9); NEUTROPHILS % (AUTO) 64.9 % (43.0-81.0); PLATELET COUNT (AUTO) 189 K/uL (150-450); RED BLOOD CELL COUNT(AUTO) 3.19 MIL/uL (4.5-6.0); RED CELL DISTRIBUTION WIDTH 13.5 % (11.5-15.0); WHITE BLOOD COUNT (AUTO) 6.9 K/uL (4.3-11.0)
[2024-06-10 07:09] LABS: ALBUMIN 2.2 g/dL (3.4-5.0); BILIRUBIN,TOTAL 0.7 mg/dL (0.2-1.0); CALCIUM, SERUM 7.8 mg/dL (8.5-10.1); CREATININE 1.4 mg/dL (0.6-1.3); POTASSIUM 3.1 mmol/L (3.5-5.1); TOTAL PROTEIN, SERUM 4.9 g/dL (6.4-8.2)
[2024-06-10 07:30] VITALS: BP 141/82; TEMP 99; O2SAT 98
[2024-06-10] MEDS ORDERED: SUCR1TAB31 PO (08:25)
[2024-06-10] MEDS ORDERED: FERR-68 PO (08:25)
[2024-06-10] MEDS ORDERED: PANT40SU PO (08:25)
[2024-06-10] MEDS ORDERED: CEFTRIAXONE 1 G in IV D5W 50 ML IV SCH (08:30)
[2024-06-10] MEDS: POTASSIUM CHLORIDE 20 MEQ TAB.PRT.SR PO ONE (08:34)
[2024-06-10] MEDS: PANTOPRAZOLE 40 MG TABLET.DR PO SCH (08:34)
[2024-06-10 08:35] VITALS: BP 141/82
[2024-06-10] MEDS: LISINOPRIL (20MG) 20 MG TABLET PO SCH (08:35)
[2024-06-10] MEDS: CEFTRIAXONE 1 G in IV D5W 50 ML IV SCH (09:00)
[2024-06-10] MEDS: ACETAMINOPHEN 325 MG TABLET PO PRN (14:47)
== END 2024-06-10 15:47 | disposition home or self-care (01) | DRG 241 ==
LOC: ER 05:45 → TELE 11:42 → MED 06-10 15:21
PROVIDERS: ADMIT Internal Medicine; ATTEND Internal Medicine
PROC: 0DB68ZX Excision of Stomach, Via Natural or Artificial Opening Endoscopic, Diagnostic (ICD-10-PCS; principal; 2024-06-09)
DX: K29.71 Gastritis, unspecified, with bleeding (principal); N17.0 Acute kidney failure with tubular necrosis; E11.22 Type 2 diabetes mellitus with diabetic chronic kidney disease; N13.30 Unspecified hydronephrosis; E87.6 Hypokalemia; D50.0 Iron deficiency anemia secondary to blood loss (chronic); K20.90 Esophagitis, unspecified without bleeding; H40.9 Unspecified glaucoma; Z20.822 Contact with and (suspected) exposure to COVID-19; I12.9 Hypertensive chronic kidney disease with stage 1 through stage 4 chronic kidney disease, or unspecified chronic kidney disease; N18.30 Chronic kidney disease, stage 3 unspecified; Z79.899 Other long term (current) drug therapy; Z79.4 Long term (current) use of insulin; Z98.890 Other specified postprocedural states
CPT/HCPCS: 36415; 71045-TC; 76705-TC; 80048-TC; 80053-TC; 80076-TC; 81001; 82140-TC; 82962-TC; 83690-TC; 85025-TC; 85730-TC; A4223; G0378; G0480; J0360; J0696; J1815; J2270; J2405; J2470; J2704; J2765; J3480; J3490; J7030; J7040; J7060

== ENCOUNTER 2024-06-13 07:53 | Emergency (ER) | payer MEDICAID ==
[~2024-06-13] VITALS: Ht 172.7 cm; Wt 79.4 kg
[~2024-06-13 07:53] MED LIST changes: -AMLO10TA4 PO; -AZIT500T4 PO; +BENA40TA8 PO; -CIPR500S3 PO; +FERR-68 PO; -KETO10TA2 PO; -METO-295 PO; -METR-147 PO; -METR500T PO; -ONDA4TAB5 PO; +PANT40SU PO; +SUCR1TAB31 PO
[2024-06-13] MEDS ORDERED: METOCLOPRAMIDE HCL 10 MG/2 ML VIAL ONE (08:16)
[2024-06-13] MEDS ORDERED: diphenhydrAMINE HCL 50 MG/ML VIAL ONE (08:16)
[2024-06-13] MEDS ORDERED: FAMOTIDINE/PF INJ 20 MG/2 ML VIAL IV ONE (08:16)
[2024-06-13] MEDS: METOCLOPRAMIDE HCL 10 MG/2 ML VIAL IV ONE (08:17)
[2024-06-13] MEDS: IV NS 0.9% 1,000 ML BAG IV ONE (08:17)
[2024-06-13] MEDS: FAMOTIDINE/PF INJ 20 MG/2 ML VIAL IV ONE (08:17)
[2024-06-13] MEDS: diphenhydrAMINE HCL 50 MG/ML VIAL IV ONE (08:17)
[2024-06-13 08:35] LABS: BASOPHILS # (AUTO) 0.1 K/uL (0.0-0.2); BASOPHILS % (AUTO) 0.6 % (0.0-2.0); EOSINOPHILS % (AUTO) 0.2 % (0.0-6.0); HEMATOCRIT 36 % (39-51); HEMOGLOBIN 12.7 g/dL (13.5-17.5); LYMPHOCYTES # (AUTO) 1.3 K/uL (0.8-4.8); LYMPHOCYTES % (AUTO) 10.8 % (20.0-44.0); MEAN CORPUSCULAR HEMOGLOBIN 30 PG (26.0-33.0); MEAN CORPUSCULAR HGB CONC 35 g/dl (31.0-36.0); MEAN CORPUSCULAR VOLUME 86 fL (80-96); MONOCYTES # (AUTO) 0.6 K/uL (0.1-1.30); MONOCYTES % (AUTO) 5.5 % (2.0-12.0); NEUTROPHILS # (AUTO) 9.7 K/uL (1.8-8.9); NEUTROPHILS % (AUTO) 82.9 % (43.0-81.0); PLATELET COUNT (AUTO) 237 K/uL (150-450); RED BLOOD CELL COUNT(AUTO) 4.25 MIL/uL (4.5-6.0); RED CELL DISTRIBUTION WIDTH 13.4 % (11.5-15.0); WHITE BLOOD COUNT (AUTO) 11.7 K/uL (4.3-11.0)
[2024-06-13 08:44] LABS: CALCIUM, SERUM 8.6 mg/dL (8.5-10.1); CREATININE 1.4 mg/dL (0.6-1.3); POTASSIUM 3.6 mmol/L (3.5-5.1)
[2024-06-13 08:52] LABS: ALBUMIN 2.7 g/dL (3.4-5.0); BILIRUBIN,DIRECT 0.2 mg/dL (0.0-0.2); TOTAL PROTEIN, SERUM 6.2 g/dL (6.4-8.2)
[2024-06-13] MEDS ORDERED: ONDA4TAB5 PO (09:04)
[2024-06-13 09:08] VITALS: BP 140/80; TEMP 97.6; O2SAT 98
[2024-06-13 09:08] LABS: NT-PRO BNP 1552 pg/mL (0-125)
[2024-06-13 10:08] LABS: APPEARANCE,URINE CLEAR (CLEAR); BILIRUBIN,URINE 1+ (NEGATIVE); BLOOD, URINE 1+ Ery/uL (NEGATIVE); COLOR,URINE YELLOW (YELLOW); KETONES,URINE 2+ mg/dL (NEGATIVE); LEUKOCYTE ESTERASE ,URINE NEGATIVE (NEGATIVE); NITRITE, URINE NEGATIVE (NEGATIVE); PROTEIN,URINE 3+ mg/dl (NEGATIVE); UGLUCOSE 2+ mg/dL (NEGATIVE); UROBILINOGEN,URINE 0.2 EU/dL (0.2)
[2024-06-13 10:10] LABS: ADD URINE CULTURE NO; BACTERIA,URINE Rare /HPF (None Seen); SQUAMOUS EPITHELIAL CELL,UR Few /HPF (None Seen); WBC,URINE 0-2 /HPF (0-3)
== END 2024-06-13 09:11 | disposition home or self-care (01) ==
LOC: ER 07:54
DX: K29.70 Gastritis, unspecified, without bleeding (principal); I10 Essential (primary) hypertension; E11.9 Type 2 diabetes mellitus without complications; K21.9 Gastro-esophageal reflux disease without esophagitis; R11.2 Nausea with vomiting, unspecified; R06.00 Dyspnea, unspecified; R07.9 Chest pain, unspecified
CPT/HCPCS: 99285; 96374; 96375; 71045; 96361; 93005; 85025; 80048; 87086; 83690; 80076; 81001; 36415; 84484; 83880; J1200; J3490; J2765; J7030

== ENCOUNTER 2024-06-14 11:45 | Inpatient (IN) | payer MEDICAID ==
[~2024-06-14] VITALS: Ht 172.7 cm; Wt 80.7 kg
[~2024-06-14 11:45] MED LIST changes: +ONDA4TAB5 PO
[2024-06-14 13:31] LABS: INR 0.98 (0.91-1.10); PARTIAL THROMBOPLASTIN TIME 22.8 SEC (24.3-34.3); PROTHROMBIN TIME 10.4 SECS (9.2-11.1)
[2024-06-14 13:32] LABS: CALCIUM, SERUM 7.8 mg/dL (8.5-10.1); CREATININE 1.9 mg/dL (0.6-1.3); POTASSIUM 3.5 mmol/L (3.5-5.1)
[2024-06-14 13:34] LABS: BASOPHILS # (AUTO) 0.1 K/uL (0.0-0.2); EOSINOPHILS # (AUTO) 0.1 K/uL (0.0-0.7); EOSINOPHILS % (AUTO) 1.6 % (0.0-6.0); HEMATOCRIT 28 % (39-51); HEMOGLOBIN 10.3 g/dL (13.5-17.5); LYMPHOCYTES # (AUTO) 1.7 K/uL (0.8-4.8); LYMPHOCYTES % (AUTO) 19.6 % (20.0-44.0); MEAN CORPUSCULAR HEMOGLOBIN 31 PG (26.0-33.0); MEAN CORPUSCULAR HGB CONC 37 g/dl (31.0-36.0); MEAN CORPUSCULAR VOLUME 85 fL (80-96); MONOCYTES # (AUTO) 0.9 K/uL (0.1-1.30); NEUTROPHILS % (AUTO) 67.8 % (43.0-81.0); PLATELET COUNT (AUTO) 197 K/uL (150-450); RED CELL DISTRIBUTION WIDTH 13.4 % (11.5-15.0); WHITE BLOOD COUNT (AUTO) 8.9 K/uL (4.3-11.0)
[2024-06-14] MEDS: MORPHINE SULFATE INJ 2 MG/ML DISP.SYRIN IV ONE (14:05)
[2024-06-14] MEDS ORDERED: MORPHINE SULFATE INJ 4 MG/ML DISP.SYRIN ONE (14:05)
[2024-06-14] MEDS ORDERED: ONDANSETRON HCL/PF 4 MG/2 ML VIAL IV PRN (16:30)
[2024-06-14] MEDS ORDERED: HYDROMORPHONE MDV 0.5 MG in IV D5W 50 ML IV PRN (16:30)
[2024-06-14] MEDS ORDERED: DEXTROSE 50%-WATER 50 ML DISP.SYRIN IV PRN (16:30)
[2024-06-14] MEDS: ATROPINE SULFATE OPHTH SOLN 15 ML BOTTLE RIGHTEYE SCH (16:59)
[2024-06-14] MEDS: TIMOLOL MAL/DORZOLAM HCL OPHTH 10 ML BOTTLE EACHEYE SCH (16:59)
[2024-06-14] MEDS: BRIMONIDINE TARTRATE OPHT SOLN 5 ML BOTTLE EACHEYE SCH (16:59)
[2024-06-14] MEDS: SUCRALFATE 1 G TABLET PO SCH (17:00)
[2024-06-14] MEDS: HYDROCODONE/APAP 5/325MG TABLET PO PRN (17:00)
[2024-06-14] MEDS: FERROUS SULFATE (325 MG) 325 MG/TAB TABLET PO SCH (17:00)
[2024-06-14] MEDS ORDERED: BRIMONIDINE TARTRATE EACHEYE SCH (17:00)
[2024-06-14] MEDS: PANTOPRAZOLE 40 MG/PACK PACK PO SCH (17:02)
[2024-06-14] MEDS: INSULIN REGULAR, HUMAN 100 UNIT/ML 3 ML VIAL SQ PRN (17:59)
[2024-06-14] MEDS: BLOOD SUGAR DIAGNOSTIC 1 EACH STRIP VI SCH (17:59)
[2024-06-14] MEDS: IV 1/2NS 1000 ML 1,000 ML IV PRN (19:56)
[2024-06-14 20:00] VITALS: BP 135/78; TEMP 98.1; O2SAT 98
[2024-06-14] MEDS: LATANOPROST EYE DROP 0.005% 2.5 ML BOTTLE EACHEYE SCH (21:17)
[2024-06-14] MEDS: HEPARIN SODIUM, PORCINE 5000 UNITS/1 ML VIAL SQ SCH (21:46)
[2024-06-14] MEDS: INSULIN GLARGINE, 100 UNIT/ML CARTRIDGE SQ SCH (22:00)
[2024-06-14] MEDS: *INSULIN REGULAR(HUMULIN R)HUM 100 UNIT/ML VIAL SQ PRN (22:20)
[2024-06-14] MEDS ORDERED: IV NS 0.9% 1,000 ML IV ONE (22:30)
[2024-06-15] MEDS: HYDROMORPHONE 1 MG/1 ML DISP.SYRIN IV PRN ×2 (00:46→05:04)
[2024-06-15 04:00] VITALS: BP 122/69; TEMP 97.7; O2SAT 98
[2024-06-15] MEDS: NALOXONE HCL 0.4 MG/ML AMPUL IV PRN ×2 (04:28→04:45)
[2024-06-15 08:00] VITALS: BP 169/93; TEMP 97.7; O2SAT 97
[2024-06-15] MEDS: TAMSULOSIN 0.4 MG CAP.SR.24H PO SCH (08:28)
[2024-06-15] MEDS: BENAZEPRIL HCL 20 MG TABLET PO SCH (08:29)
[2024-06-15 09:18] LABS: CALCIUM, SERUM 7.8 mg/dL (8.5-10.1); CREATININE 1.6 mg/dL (0.6-1.3); POTASSIUM 4.3 mmol/L (3.5-5.1)
[2024-06-15 10:25] LABS: MAGNESIUM 1.9 mg/dL (1.8-2.4); PHOSPHORUS 4.9 mg/dL (2.5-4.9)
[2024-06-15 10:42] LABS: THYROID STIMULATING HORMONE 1.03 uIU/mL (0.358-3.74)
[2024-06-15] MEDS ORDERED: BUPIVACAINE 0.25% 75 MG/30 ML VIAL ONE (11:41)
[2024-06-15] MEDS ORDERED: POLYMYXIN B SULFATE 500,000 UNITS ONE (11:41)
[2024-06-15] MEDS ORDERED: BUPIVACAINE 0.5 % PF 150 MG/30 ML VIAL ONE (11:41)
[2024-06-15] MEDS: METOPROLOL TARTRATE 50 MG TABLET PO SCH (11:49)
[2024-06-15] MEDS ORDERED: FENTANYL PF 100MCG/2ML AMPUL IV ONE (12:54)
[2024-06-15] MEDS ORDERED: TRANEXAMIC ACID 1,000 MG/10 ML VIAL ONE (13:27)
[2024-06-15] MEDS ORDERED: FENTANYL PF 100MCG/2ML AMPUL ONE (14:16)
[2024-06-15 16:43] LABS: HEMOGLOBIN 9.8 g/dL (13.5-17.5)
[2024-06-15] MEDS: IV NS 0.9% 1,000 ML IV PRN (17:21)
[2024-06-15 18:00] VITALS: BP 158/91; TEMP 97.5; O2SAT 100
[2024-06-15 20:00] VITALS: BP 135/76; TEMP 98.6; O2SAT 96
[2024-06-15] MEDS: CEFAZOLIN 2 GM in IV D5W 100 ML IV SCH (21:34)
[2024-06-15] MEDS: ZOLPIDEM TARTRATE 5 MG TABLET PO PRN (23:22)
[2024-06-16 04:00] VITALS: BP 124/74; TEMP 97.7; O2SAT 96
[2024-06-16 06:22] LABS: BASOPHILS % (AUTO) 0.2 % (0.0-2.0); HEMATOCRIT 23 % (39-51); HEMOGLOBIN 7.9 g/dL (13.5-17.5); LYMPHOCYTES # (AUTO) 1.2 K/uL (0.8-4.8); LYMPHOCYTES % (AUTO) 11.8 % (20.0-44.0); MEAN CORPUSCULAR HEMOGLOBIN 31 PG (26.0-33.0); MEAN CORPUSCULAR HGB CONC 35 g/dl (31.0-36.0); MEAN CORPUSCULAR VOLUME 86 fL (80-96); MONOCYTES % (AUTO) 9.9 % (2.0-12.0); NEUTROPHILS # (AUTO) 7.8 K/uL (1.8-8.9); NEUTROPHILS % (AUTO) 78.1 % (43.0-81.0); PLATELET COUNT (AUTO) 165 K/uL (150-450); RED CELL DISTRIBUTION WIDTH 13.3 % (11.5-15.0)
[2024-06-16 06:33] LABS: CALCIUM, SERUM 7.1 mg/dL (8.5-10.1); CREATININE 1.9 mg/dL (0.6-1.3)
[2024-06-16] MEDS: ENOXAPARIN SODIUM 40 MG/0.4 ML DISP.SYRIN SQ SCH (09:00)
[2024-06-16] MEDS: TAMSULOSIN 0.4 MG CAP.SR.24H PO SCH (09:25)
[2024-06-16 12:00] VITALS: BP 119/68; TEMP 99.6; O2SAT 97
[2024-06-16] MEDS: CEFAZOLIN 2 GM in IV D5W 100 ML IV SCH (12:11)
[2024-06-16] MEDS: SOD FERRIC GLUC 125 MG in IV NS 0.9% 100 ML IV SCH (13:33)
[2024-06-16 20:00] VITALS: BP 124/70; TEMP 98.6; O2SAT 97
[2024-06-16] MEDS: BISACODYL (5 MG) 5 MG TABLET.DR PO ONE (21:27)
[2024-06-16] MEDS: POLYETHYLENE GLYCOL 3350 17 GM POWD.PACK PO SCH (21:27)
[2024-06-17 04:00] VITALS: BP 114/72; TEMP 98.6; O2SAT 98
[2024-06-17 06:33] LABS: BASOPHILS % (AUTO) 0.5 % (0.0-2.0); EOSINOPHILS # (AUTO) 0.1 K/uL (0.0-0.7); EOSINOPHILS % (AUTO) 1.4 % (0.0-6.0); HEMATOCRIT 21 % (39-51); HEMOGLOBIN 7.3 g/dL (13.5-17.5); LYMPHOCYTES # (AUTO) 1.5 K/uL (0.8-4.8); LYMPHOCYTES % (AUTO) 19.4 % (20.0-44.0); MEAN CORPUSCULAR HEMOGLOBIN 31 PG (26.0-33.0); MEAN CORPUSCULAR HGB CONC 36 g/dl (31.0-36.0); MEAN CORPUSCULAR VOLUME 87 fL (80-96); MONOCYTES # (AUTO) 0.9 K/uL (0.1-1.30); MONOCYTES % (AUTO) 11.1 % (2.0-12.0); NEUTROPHILS # (AUTO) 5.4 K/uL (1.8-8.9); NEUTROPHILS % (AUTO) 67.6 % (43.0-81.0); PLATELET COUNT (AUTO) 149 K/uL (150-450); RED BLOOD CELL COUNT(AUTO) 2.37 MIL/uL (4.5-6.0); RED CELL DISTRIBUTION WIDTH 13.4 % (11.5-15.0)
[2024-06-17 07:12] LABS: CALCIUM, SERUM 7.8 mg/dL (8.5-10.1); CREATININE 1.6 mg/dL (0.6-1.3); POTASSIUM 3.8 mmol/L (3.5-5.1)
[2024-06-17] MEDS ORDERED: Hydrocodone/Apap 5/325MG PO (07:45)
[2024-06-17] MEDS ORDERED: ENOX40DI SQ (07:45)
[2024-06-17 08:00] VITALS: BP 161/78; TEMP 98.6; O2SAT 97
[2024-06-17 09:00] VITALS: BP 149/72
[2024-06-17 12:00] VITALS: BP 160/85
[2024-06-17 15:26] LABS: APPEARANCE,URINE CLEAR (CLEAR); BILIRUBIN,URINE NEGATIVE (NEGATIVE); BLOOD, URINE 1+ Ery/uL (NEGATIVE); COLOR,URINE YELLOW (YELLOW); KETONES,URINE NEGATIVE (NEGATIVE); LEUKOCYTE ESTERASE ,URINE NEGATIVE (NEGATIVE); NITRITE, URINE NEGATIVE (NEGATIVE); PROTEIN,URINE 2+ mg/dl (NEGATIVE); UGLUCOSE TRACE mg/dL (NEGATIVE); UROBILINOGEN,URINE 0.2 EU/dL (0.2)
[2024-06-17 16:00] VITALS: BP 154/82; TEMP 98.4; O2SAT 98
[2024-06-17] MEDS: CLONIDINE HCL 0.1 MG TABLET PO PRN (16:31)
[2024-06-17 17:08] LABS: WBC,URINE 0-2 /HPF (0-3)
[2024-06-17 17:09] LABS: ADD URINE CULTURE NO; BACTERIA,URINE None seen /HPF (None Seen); SQUAMOUS EPITHELIAL CELL,UR 0-2 /HPF (None Seen)
[2024-06-17 17:12] VITALS: BP 152/84
== END 2024-06-17 17:30 | DRG 308 ==
LOC: ER 11:51 → MEDSG1 14:33 → TELE1 06-15 07:39 → MEDSG1 06-16 10:37
PROVIDERS: ADMIT Internal Medicine; ATTEND Internal Medicine
PROC: 0QS606Z Reposition Right Upper Femur with Intramedullary Internal Fixation Device, Open Approach (ICD-10-PCS; principal; 2024-06-15)
DX: S72.141A Displaced intertrochanteric fracture of right femur, initial encounter for closed fracture (principal); N17.9 Acute kidney failure, unspecified; E11.22 Type 2 diabetes mellitus with diabetic chronic kidney disease; E11.42 Type 2 diabetes mellitus with diabetic polyneuropathy; D64.9 Anemia, unspecified; H40.9 Unspecified glaucoma; I12.9 Hypertensive chronic kidney disease with stage 1 through stage 4 chronic kidney disease, or unspecified chronic kidney disease; W18.30XA Fall on same level, unspecified, initial encounter; Y92.512 Supermarket, store or market as the place of occurrence of the external cause; K29.70 Gastritis, unspecified, without bleeding; N40.1 Benign prostatic hyperplasia with lower urinary tract symptoms; R33.8 Other retention of urine; Z20.822 Contact with and (suspected) exposure to COVID-19; N18.30 Chronic kidney disease, stage 3 unspecified; Z98.890 Other specified postprocedural states; Z79.4 Long term (current) use of insulin
CPT/HCPCS: 36415; 71045-TC; 72192-TC; 73502; 73552; 73564-TC; 76770-TC; 80048-TC; 80061-TC; 81001; 82728-TC; 82962-TC; 83540-TC; 83735-TC; 84100-TC; 84439-TC; 84443-TC; 85025-TC; 85027-TC; 85730-TC; 86850-TC; 87040-TC; 93307-TC; 97110-TC; 97116-TC; 97530-TC; 97535-TC; A4223; G0378; J0690; J1100; J1171; J1644; J1650; J1815; J1885; J2270; J2310; J2704; J2765; J2916; J3010; J3490; J7030; J7060

== ENCOUNTER 2024-07-20 17:58 | Emergency (ER) | payer MEDICAID ==
[~2024-07-20] VITALS: Ht 172.7 cm; Wt 77.1 kg
[~2024-07-20 17:58] MED LIST changes: +ENOX40DI SQ; +Hydrocodone/Apap 5/325MG PO; -ONDA4TAB11 PO
[2024-07-20 18:01] VITALS: TEMP 98.3
[2024-07-20] MEDS ORDERED: ONDANSETRON HCL/PF 4 MG/2 ML VIAL ONE (18:42)
[2024-07-20] MEDS ORDERED: PANTOPRAZOLE 40 MG VIAL ONE (18:42)
[2024-07-20] MEDS: IV NS 0.9% 1,000 ML BAG IV ONE (19:00)
[2024-07-20] MEDS: ONDANSETRON HCL/PF 4 MG/2 ML VIAL IVP ONE (19:02)
[2024-07-20] MEDS: PANTOPRAZOLE 40 MG VIAL IV ONE (19:05)
[2024-07-20 19:12] LABS: BASOPHILS # (AUTO) 0.1 K/uL (0.0-0.2); BASOPHILS % (AUTO) 1.2 % (0.0-2.0); EOSINOPHILS # (AUTO) 0.1 K/uL (0.0-0.7); EOSINOPHILS % (AUTO) 0.8 % (0.0-6.0); HEMATOCRIT 31 % (39-51); HEMOGLOBIN 11.1 g/dL (13.5-17.5); LYMPHOCYTES # (AUTO) 0.9 K/uL (0.8-4.8); LYMPHOCYTES % (AUTO) 12.2 % (20.0-44.0); MEAN CORPUSCULAR HEMOGLOBIN 31 PG (26.0-33.0); MEAN CORPUSCULAR HGB CONC 35 g/dl (31.0-36.0); MEAN CORPUSCULAR VOLUME 89 fL (80-96); MONOCYTES # (AUTO) 0.5 K/uL (0.1-1.30); MONOCYTES % (AUTO) 6.3 % (2.0-12.0); NEUTROPHILS # (AUTO) 6.1 K/uL (1.8-8.9); NEUTROPHILS % (AUTO) 79.5 % (43.0-81.0); PLATELET COUNT (AUTO) 264 K/uL (150-450); RED BLOOD CELL COUNT(AUTO) 3.54 MIL/uL (4.5-6.0); RED CELL DISTRIBUTION WIDTH 14.2 % (11.5-15.0); WHITE BLOOD COUNT (AUTO) 7.7 K/uL (4.3-11.0)
[2024-07-20] MEDS ORDERED: hydrALAZINE HCL IV 20 MG VIAL ONE (19:18)
[2024-07-20 19:19] LABS: CALCIUM, SERUM 9.3 mg/dL (8.5-10.1); CREATININE 1.4 mg/dL (0.6-1.3); POTASSIUM 4.6 mmol/L (3.5-5.1)
[2024-07-20 19:24] LABS: INR 0.97 (0.91-1.10); PARTIAL THROMBOPLASTIN TIME 23.1 SEC (24.3-34.3)
[2024-07-20 19:25] LABS: ALBUMIN 3.1 g/dL (3.4-5.0); BILIRUBIN,DIRECT 0.1 mg/dL (0.0-0.2); BILIRUBIN,TOTAL 0.6 mg/dL (0.2-1.0)
[2024-07-20] MEDS: hydrALAZINE HCL IV 20 MG VIAL IV ONE (19:27)
[2024-07-20 19:31] LABS: APPEARANCE,URINE CLEAR (CLEAR); BILIRUBIN,URINE NEGATIVE (NEGATIVE); BLOOD, URINE 2+ Ery/uL (NEGATIVE); COLOR,URINE YELLOW (YELLOW); KETONES,URINE NEGATIVE (NEGATIVE); LEUKOCYTE ESTERASE ,URINE NEGATIVE (NEGATIVE); NITRITE, URINE NEGATIVE (NEGATIVE); PH,URINE 7.5 (5.0-8.0); PROTEIN,URINE 3+ mg/dl (NEGATIVE); UGLUCOSE 1+ mg/dL (NEGATIVE); UROBILINOGEN,URINE 0.2 EU/dL (0.2)
[2024-07-20 19:37] LABS: AMPHETAMINE, URINE NEGATIVE (NEGATIVE); BARBITURATE, URINE NEGATIVE (NEGATIVE); BENZODIAZEPINE, URINE NEGATIVE (NEGATIVE); CANNABINOID, URINE NEGATIVE (NEGATIVE); COCCAINE, URINE NEGATIVE (NEGATIVE); OPIATE, URINE NEGATIVE (NEGATIVE); PHENCYCLIDINE SCREEN,URINE NEGATIVE (NEGATIVE)
[2024-07-20 19:59] LABS: RBC,URINE 21-50 /HPF (0-2)
[2024-07-20 20:00] LABS: ADD URINE CULTURE NO; BACTERIA,URINE Few /HPF (None Seen)
[2024-07-20 20:01] LABS: SQUAMOUS EPITHELIAL CELL,UR None Seen /HPF (None Seen); WBC,URINE NONE SEEN /HPF (0-3)
[2024-07-20] MEDS ORDERED: ONDA4TAB5 PO (20:17)
[2024-07-20] MEDS ORDERED: HYDROCODONE/APAP 5/325MG TABLET ONE (20:38)
[2024-07-20] MEDS: HYDROCODONE/APAP 5/325MG TABLET PO ONE (20:42)
[2024-07-20 22:04] VITALS: BP 169/98; O2SAT 98
== END 2024-07-20 21:45 | disposition home or self-care (01) ==
LOC: ER 17:59
DX: R10.12 Left upper quadrant pain (principal); R11.2 Nausea with vomiting, unspecified; I10 Essential (primary) hypertension; G89.29 Other chronic pain; M25.551 Pain in right hip; E11.65 Type 2 diabetes mellitus with hyperglycemia; N40.0 Benign prostatic hyperplasia without lower urinary tract symptoms; R00.0 Tachycardia, unspecified; R06.00 Dyspnea, unspecified; R07.9 Chest pain, unspecified; Z87.19 Personal history of other diseases of the digestive system
CPT/HCPCS: 99285; 96374; 96361; 96375; 93005; 71045; 74176; 85025; 80048; 83690; 80076; 81001; 36415; 85730; 80320; 80307; J0360; J2405; J7030; J2470; G0480

== ENCOUNTER 2024-08-19 00:21 | Emergency (ER) | payer MEDICAID ==
[~2024-08-19] VITALS: Ht 172.7 cm; Wt 74.8 kg
[2024-08-19] MEDS ORDERED: MORPHINE SULFATE INJ 4 MG/ML DISP.SYRIN ONE ×2 (00:55→10:06)
[2024-08-19] MEDS: IV NS 0.9% 500 ML BAG IV ONE (00:56)
[2024-08-19] MEDS: MORPHINE SULFATE INJ 2 MG/ML DISP.SYRIN IV ONE ×2 (00:56→10:10)
[2024-08-19 01:09] LABS: BASOPHILS # (AUTO) 0.1 K/uL (0.0-0.2); BASOPHILS % (AUTO) 0.8 % (0.0-2.0); EOSINOPHILS # (AUTO) 0.3 K/uL (0.0-0.7); HEMOGLOBIN 10.3 g/dL (13.5-17.5); LYMPHOCYTES # (AUTO) 1.3 K/uL (0.8-4.8); LYMPHOCYTES % (AUTO) 9.3 % (20.0-44.0); NEUTROPHILS # (AUTO) 11.6 K/uL (1.8-8.9); RED CELL DISTRIBUTION WIDTH 13.7 % (11.5-15.0)
[2024-08-19 01:15] LABS: CALCIUM, SERUM 9.2 mg/dL (8.5-10.1); CARBON DIOXIDE 32 mmol/L (21-32); CHLORIDE 102 mmol/L (98-107); CREATININE 2.2 mg/dL (0.6-1.3); GLUCOSE 270 mg/dL (74-106); POTASSIUM 4.1 mmol/L (3.5-5.1); SODIUM SERUM 140 mmol/L (136-145); UREA NITROGEN, BLOOD 40 mg/dL (7-18)
[2024-08-19 01:17] LABS: EOSINOPHILS % (AUTO) 2.2 % (0.0-6.0); HEMATOCRIT 29 % (39-51); MEAN CORPUSCULAR HEMOGLOBIN 31 PG (26.0-33.0); MEAN CORPUSCULAR HGB CONC 36 g/dl (31.0-36.0); MEAN CORPUSCULAR VOLUME 88 fL (80-96); MONOCYTES % (AUTO) 7.2 % (2.0-12.0); NEUTROPHILS % (AUTO) 80.5 % (43.0-81.0); PLATELET COUNT (AUTO) 192 K/uL (150-450); RED BLOOD CELL COUNT(AUTO) 3.31 MIL/uL (4.5-6.0); WHITE BLOOD COUNT (AUTO) 14.3 K/uL (4.3-11.0)
[2024-08-19 01:23] LABS: ALANINE AMINOTRANSFERASE 20 U/L (12-78); ALBUMIN 3.3 g/dL (3.4-5.0); ALKALINE PHOSPHATASE 91 U/L (46-116); BILIRUBIN,DIRECT 0.1 mg/dL (0.0-0.2); BILIRUBIN,TOTAL 0.2 mg/dL (0.2-1.0); TOTAL PROTEIN, SERUM 6.9 g/dL (6.4-8.2)
[2024-08-19 01:33] LABS: ASPARTATE AMINOTRANSFERASE 16 U/L (15-37)
[2024-08-19 01:52] LABS: INR 0.93 (0.91-1.10); PARTIAL THROMBOPLASTIN TIME 21.6 SEC (24.3-34.3); PROTHROMBIN TIME 9.9 SECS (9.2-11.1)
[2024-08-19 10:00] VITALS: BP 147/84; TEMP 98.4; O2SAT 99
[2024-08-19] MEDS ORDERED: ONDANSETRON HCL/PF 4 MG/2 ML VIAL ONE (10:06)
[2024-08-19] MEDS: ONDANSETRON HCL/PF - ER 4 MG/2 ML VIAL IV ONE (10:10)
== END 2024-08-19 10:15 | disposition short-term general hospital (02) ==
LOC: ER 00:30
DX: S72.091A Other fracture of head and neck of right femur, initial encounter for closed fracture (principal); S01.81XA Laceration without foreign body of other part of head, initial encounter; R55 Syncope and collapse; N17.9 Acute kidney failure, unspecified; D64.9 Anemia, unspecified; E11.9 Type 2 diabetes mellitus without complications; I10 Essential (primary) hypertension; M25.551 Pain in right hip; Z20.822 Contact with and (suspected) exposure to COVID-19; W18.39XA Other fall on same level, initial encounter; Y93.89 Activity, other specified; Y92.098 Other place in other non-institutional residence as the place of occurrence of the external cause; Y99.8 Other external cause status
CPT/HCPCS: 12011; 36415; 70450; 71045; 73502; 80048; 80076; 84484; 85025; 85730; 86850; 87426; 93005; 96361; 96374; 96375; 96376; 99291; J2270; J2405; J7040

== ENCOUNTER 2024-09-01 10:14 | Emergency (ER) | payer MEDICAID ==
[~2024-09-01] VITALS: Ht 172.7 cm; Wt 72.1 kg
[2024-09-01] MEDS ORDERED: ONDANSETRON HCL/PF 4 MG/2 ML VIAL ONE (11:10)
[2024-09-01] MEDS ORDERED: MORPHINE SULFATE INJ 4 MG/ML DISP.SYRIN ONE (11:10)
[2024-09-01] MEDS: IV NS 0.9% 1,000 ML BAG IV ONE (11:19)
[2024-09-01] MEDS: ONDANSETRON HCL/PF 4 MG/2 ML VIAL IVP ONE (11:19)
[2024-09-01] MEDS: MORPHINE SULFATE INJ 2 MG/ML DISP.SYRIN IV ONE (11:19)
[2024-09-01 11:22] LABS: BASOPHILS # (AUTO) 0.1 K/uL (0.0-0.2); BASOPHILS % (AUTO) 1.1 % (0.0-2.0); EOSINOPHILS # (AUTO) 0.1 K/uL (0.0-0.7); EOSINOPHILS % (AUTO) 0.7 % (0.0-6.0); HEMATOCRIT 29 % (39-51); HEMOGLOBIN 10.6 g/dL (13.5-17.5); LYMPHOCYTES # (AUTO) 1.2 K/uL (0.8-4.8); LYMPHOCYTES % (AUTO) 12.6 % (20.0-44.0); MEAN CORPUSCULAR HEMOGLOBIN 32 PG (26.0-33.0); MEAN CORPUSCULAR HGB CONC 36 g/dl (31.0-36.0); MEAN CORPUSCULAR VOLUME 88 fL (80-96); MONOCYTES # (AUTO) 0.3 K/uL (0.1-1.30); MONOCYTES % (AUTO) 3.6 % (2.0-12.0); PLATELET COUNT (AUTO) 314 K/uL (150-450); RED BLOOD CELL COUNT(AUTO) 3.35 MIL/uL (4.5-6.0); RED CELL DISTRIBUTION WIDTH 13.8 % (11.5-15.0); WHITE BLOOD COUNT (AUTO) 9.7 K/uL (4.3-11.0)
[2024-09-01] MEDS ORDERED: IOHEXOL-300 100 ML VIAL IV ONE (11:30)
[2024-09-01] MEDS ORDERED: IV NS 0.9% 250 ML IV ONE (11:30)
[2024-09-01 11:38] LABS: CALCIUM, SERUM 8.9 mg/dL (8.5-10.1); CARBON DIOXIDE 28 mmol/L (21-32); CHLORIDE 102 mmol/L (98-107); CREATININE 1.4 mg/dL (0.6-1.3); GLUCOSE 159 mg/dL (74-106); POTASSIUM 3.5 mmol/L (3.5-5.1); SODIUM SERUM 139 mmol/L (136-145); UREA NITROGEN, BLOOD 12 mg/dL (7-18)
[2024-09-01 11:45] LABS: ALANINE AMINOTRANSFERASE 14 U/L (12-78); ALKALINE PHOSPHATASE 82 U/L (46-116); ASPARTATE AMINOTRANSFERASE 13 U/L (15-37); BILIRUBIN,DIRECT 0.1 mg/dL (0.0-0.2); BILIRUBIN,TOTAL 0.6 mg/dL (0.2-1.0); LIPASE 41 U/L (16-77); TOTAL PROTEIN, SERUM 6.5 g/dL (6.4-8.2)
[2024-09-01 11:53] LABS: APPEARANCE,URINE CLEAR (CLEAR); BILIRUBIN,URINE NEGATIVE (NEGATIVE); BLOOD, URINE 1+ Ery/uL (NEGATIVE); COLOR,URINE YELLOW (YELLOW); KETONES,URINE 1+ mg/dL (NEGATIVE); LEUKOCYTE ESTERASE ,URINE NEGATIVE (NEGATIVE); NITRITE, URINE NEGATIVE (NEGATIVE); PROTEIN,URINE 3+ mg/dl (NEGATIVE); UGLUCOSE TRACE mg/dL (NEGATIVE); UROBILINOGEN,URINE 0.2 EU/dL (0.2)
[2024-09-01 11:57] LABS: ADD URINE CULTURE NO; BACTERIA,URINE Rare /HPF (None Seen); SQUAMOUS EPITHELIAL CELL,UR None Seen /HPF (None Seen); WBC,URINE 0-2 /HPF (0-3)
[2024-09-01] MEDS ORDERED: ONDA4TAB5 PO (14:37)
[2024-09-01 15:01] VITALS: BP 129/81; TEMP 98.6; O2SAT 98
== END 2024-09-01 15:01 | disposition home or self-care (01) ==
LOC: ER 10:30
DX: R10.9 Unspecified abdominal pain (principal); R11.2 Nausea with vomiting, unspecified; E11.43 Type 2 diabetes mellitus with diabetic autonomic (poly)neuropathy; I10 Essential (primary) hypertension; Z86.73 Personal history of transient ischemic attack (TIA), and cerebral infarction without residual deficits; Z87.19 Personal history of other diseases of the digestive system
CPT/HCPCS: 99285; 74177; 96374; 96361; 96375; 85025; 80048; 83690; 80076; 81001; 36415; 84484; J2270; J2405; J7030; J7050; Q9967

== ENCOUNTER 2024-09-20 03:57 | Emergency (ER) | payer MEDICAID ==
[~2024-09-20] VITALS: Ht 172.7 cm; Wt 72.6 kg
[~2024-09-20 03:57] MED LIST changes: +AMLO-213 PO; +FURO-145 PO; +MUPI1OIN5 TP
[2024-09-20] MEDS ORDERED: FUROSEMIDE 40 MG/4 ML VIAL ONE (04:35)
[2024-09-20] MEDS: FUROSEMIDE 40 MG/4 ML VIAL IV ONE (04:39)
[2024-09-20] MEDS: BENAZEPRIL HCL 10 MG TABLET PO ONE (04:41)
[2024-09-20 04:46] LABS: BASOPHILS # (AUTO) 0.1 K/uL (0.0-0.2); BASOPHILS % (AUTO) 1.7 % (0.0-2.0); EOSINOPHILS # (AUTO) 0.2 K/uL (0.0-0.7); EOSINOPHILS % (AUTO) 2.9 % (0.0-6.0); HEMATOCRIT 26 % (39-51); HEMOGLOBIN 9.2 g/dL (13.5-17.5); LYMPHOCYTES # (AUTO) 1.2 K/uL (0.8-4.8); LYMPHOCYTES % (AUTO) 18.9 % (20.0-44.0); MEAN CORPUSCULAR HEMOGLOBIN 31 PG (26.0-33.0); MEAN CORPUSCULAR HGB CONC 36 g/dl (31.0-36.0); MEAN CORPUSCULAR VOLUME 87 fL (80-96); MONOCYTES # (AUTO) 0.5 K/uL (0.1-1.30); MONOCYTES % (AUTO) 7.4 % (2.0-12.0); NEUTROPHILS # (AUTO) 4.5 K/uL (1.8-8.9); NEUTROPHILS % (AUTO) 69.1 % (43.0-81.0); PLATELET COUNT (AUTO) 237 K/uL (150-450); RED BLOOD CELL COUNT(AUTO) 2.94 MIL/uL (4.5-6.0); RED CELL DISTRIBUTION WIDTH 13.5 % (11.5-15.0); WHITE BLOOD COUNT (AUTO) 6.5 K/uL (4.3-11.0)
[2024-09-20 05:08] LABS: CALCIUM, SERUM 9.5 mg/dL (8.5-10.1); CREATININE 1.6 mg/dL (0.6-1.3)
[2024-09-20 05:57] VITALS: BP 170/89; TEMP 98; O2SAT 99
== END 2024-09-20 05:58 | disposition home or self-care (01) ==
LOC: ER 03:59
DX: R06.01 Orthopnea (principal); D64.9 Anemia, unspecified; I11.0 Hypertensive heart disease with heart failure; E11.9 Type 2 diabetes mellitus without complications; R60.9 Edema, unspecified; I50.9 Heart failure, unspecified; Z79.4 Long term (current) use of insulin; Z79.899 Other long term (current) drug therapy
CPT/HCPCS: 99285; 96374; 71045; 93005; 85025; 80048; 36415; 83880; J1940

== ENCOUNTER 2024-10-07 10:19 | Inpatient (IN) | payer MEDICAID ==
[~2024-10-07] VITALS: Ht 172.7 cm; Wt 72.6 kg
[2024-10-07] MEDS ORDERED: ONDANSETRON HCL/PF 4 MG/2 ML VIAL ONE ×2 (10:51→18:07)
[2024-10-07] MEDS ORDERED: hydrALAZINE HCL IV 20 MG VIAL ONE ×3 (10:51→19:37)
[2024-10-07] MEDS: IV NS 0.9% 1,000 ML BAG IV ONE (11:00)
[2024-10-07] MEDS: hydrALAZINE HCL IV 20 MG VIAL IV ONE ×2 (11:00→14:55)
[2024-10-07 11:01] LABS: BASOPHILS # (AUTO) 0.1 K/uL (0.0-0.2); BASOPHILS % (AUTO) 0.8 % (0.0-2.0); EOSINOPHILS % (AUTO) 0.7 % (0.0-6.0); HEMATOCRIT 31 % (39-51); HEMOGLOBIN 10.9 g/dL (13.5-17.5); LYMPHOCYTES % (AUTO) 13.9 % (20.0-44.0); MEAN CORPUSCULAR HEMOGLOBIN 31 PG (26.0-33.0); MEAN CORPUSCULAR HGB CONC 36 g/dl (31.0-36.0); MEAN CORPUSCULAR VOLUME 87 fL (80-96); MONOCYTES # (AUTO) 0.4 K/uL (0.1-1.30); NEUTROPHILS # (AUTO) 5.7 K/uL (1.8-8.9); NEUTROPHILS % (AUTO) 79.6 % (43.0-81.0); PLATELET COUNT (AUTO) 192 K/uL (150-450); RED BLOOD CELL COUNT(AUTO) 3.51 MIL/uL (4.5-6.0); RED CELL DISTRIBUTION WIDTH 13.4 % (11.5-15.0); WHITE BLOOD COUNT (AUTO) 7.2 K/uL (4.3-11.0)
[2024-10-07] MEDS: ONDANSETRON HCL/PF 4 MG/2 ML VIAL IVP ONE (11:01)
[2024-10-07 11:23] LABS: ALANINE AMINOTRANSFERASE 17 U/L (12-78); ALKALINE PHOSPHATASE 94 U/L (46-116); ASPARTATE AMINOTRANSFERASE 20 U/L (15-37); BILIRUBIN,DIRECT 0.1 mg/dL (0.0-0.2); BILIRUBIN,TOTAL 0.6 mg/dL (0.2-1.0); CALCIUM, SERUM 8.5 mg/dL (8.5-10.1); CARBON DIOXIDE 28 mmol/L (21-32); CHLORIDE 104 mmol/L (98-107); CREATININE 1.6 mg/dL (0.6-1.3); GLUCOSE 331 mg/dL (74-106); LIPASE 94 U/L (16-77); POTASSIUM 4.3 mmol/L (3.5-5.1); SODIUM SERUM 141 mmol/L (136-145); TOTAL PROTEIN, SERUM 6.7 g/dL (6.4-8.2); UREA NITROGEN, BLOOD 28 mg/dL (7-18)
[2024-10-07 11:26] LABS: SITE, VBG VBG - N/A; VBG BASE EXCESS -1.8 mmol/L (-2.0-3.0); VBG COHb 0.2 % (0.5-1.5); VBG HCO3 22.2 mmol/L (22.0-29.0); VBG MetHb 0.3 % (0.5-1.5); VBG O2Hb 92.9 % (0-79); VBG OXYGEN SATURATION 93.4 % (60.0-85.0); VBG PH 7.421 (7.320-7.430); VBG TOTAL HEMOGLOBIN 9.9 G/dL (13.5-17.5)
[2024-10-07] MEDS ORDERED: AMLO10TA4 PO (11:32)
[2024-10-07] MEDS ORDERED: METF-442 PO (11:32)
[2024-10-07 11:50] LABS: ACETONE, SERUM NEGATIVE (NEGATIVE)
[2024-10-07 11:56] LABS: NT-PRO BNP 1222 pg/mL (0-125)
[2024-10-07 13:00] LABS: APPEARANCE,URINE CLEAR (CLEAR); BILIRUBIN,URINE NEGATIVE (NEGATIVE); BLOOD, URINE 1+ Ery/uL (NEGATIVE); COLOR,URINE YELLOW (YELLOW); KETONES,URINE TRACE mg/dL (NEGATIVE); LEUKOCYTE ESTERASE ,URINE NEGATIVE (NEGATIVE); NITRITE, URINE NEGATIVE (NEGATIVE); PH,URINE 7.5 (5.0-8.0); PROTEIN,URINE 3+ mg/dl (NEGATIVE); UGLUCOSE 2+ mg/dL (NEGATIVE); UROBILINOGEN,URINE 0.2 EU/dL (0.2)
[2024-10-07 13:09] LABS: ADD URINE CULTURE NO; BACTERIA,URINE Rare /HPF (None Seen); SQUAMOUS EPITHELIAL CELL,UR Few /HPF (None Seen); WBC,URINE 0-2 /HPF (0-3)
[2024-10-07] MEDS ORDERED: HYDROCODONE/APAP 5/325MG TABLET ONE (14:15)
[2024-10-07] MEDS: HYDROCODONE/APAP 5/325MG TABLET PO ONE (14:19)
[2024-10-07] MEDS: AMLODIPINE BESYLATE 10 MG TABLET PO SCH (18:00)
[2024-10-07] MEDS: ONDANSETRON HCL/PF 4 MG/2 ML VIAL IV PRN (18:17)
[2024-10-07] MEDS ORDERED: ACETAMINOPHEN 325 MG TABLET ONE (18:35)
[2024-10-07] MEDS ORDERED: LISINOPRIL (20MG) 20 MG TABLET ONE (18:35)
[2024-10-07] MEDS: LISINOPRIL (20MG) 20 MG TABLET PO SCH (18:40)
[2024-10-07] MEDS: ACETAMINOPHEN 325 MG TABLET PO PRN (18:40)
[2024-10-07] MEDS ORDERED: hydrALAZINE HCL IV 20 MG VIAL IV PRN (22:00)
[2024-10-07] MEDS: MORPHINE SULFATE INJ 2 MG/ML DISP.SYRIN IV PRN (22:18)
[2024-10-07] MEDS: IV 1/2NS 1000 ML 1,000 ML IV PRN (22:26)
[2024-10-07] MEDS: INSULIN GLARGINE, 100 UNIT/ML CARTRIDGE SQ ONE (22:46)
[2024-10-07] MEDS ORDERED: PROCHLORPERAZINE EDISYLATE 10 MG/2 ML VIAL ONE (23:40)
[2024-10-07] MEDS: PROCHLORPERAZINE EDISYLATE 10 MG/2 ML VIAL IVP PRN (23:45)
[2024-10-08] VITALS: BP 141/77; TEMP 98.1; O2SAT 97
[2024-10-08 04:00] VITALS: BP 132/81; TEMP 98.6; O2SAT 99
[2024-10-08 08:00] VITALS: BP 161/84; TEMP 99; O2SAT 98
[2024-10-08] MEDS: CARVEDILOL 12.5 MG TABLET PO SCH ×2 (08:21→16:59)
[2024-10-08] MEDS: HYDROCODONE/APAP 5/325MG TABLET PO PRN (08:22)
[2024-10-08 08:23] LABS: BASOPHILS # (AUTO) 0.1 K/uL (0.0-0.2); BASOPHILS % (AUTO) 0.9 % (0.0-2.0); EOSINOPHILS # (AUTO) 0.1 K/uL (0.0-0.7); EOSINOPHILS % (AUTO) 0.6 % (0.0-6.0); HEMATOCRIT 26 % (39-51); HEMOGLOBIN 9.4 g/dL (13.5-17.5); LYMPHOCYTES # (AUTO) 1.9 K/uL (0.8-4.8); LYMPHOCYTES % (AUTO) 21.8 % (20.0-44.0); MEAN CORPUSCULAR HEMOGLOBIN 31 PG (26.0-33.0); MEAN CORPUSCULAR HGB CONC 36 g/dl (31.0-36.0); MEAN CORPUSCULAR VOLUME 87 fL (80-96); MONOCYTES # (AUTO) 0.6 K/uL (0.1-1.30); MONOCYTES % (AUTO) 7.5 % (2.0-12.0); NEUTROPHILS % (AUTO) 69.2 % (43.0-81.0); PLATELET COUNT (AUTO) 208 K/uL (150-450); RED BLOOD CELL COUNT(AUTO) 2.99 MIL/uL (4.5-6.0); RED CELL DISTRIBUTION WIDTH 13.2 % (11.5-15.0); WHITE BLOOD COUNT (AUTO) 8.7 K/uL (4.3-11.0)
[2024-10-08 08:24] LABS: CALCIUM, SERUM 8.6 mg/dL (8.5-10.1); CREATININE 1.9 mg/dL (0.6-1.3); MAGNESIUM 2.5 mg/dL (1.8-2.4); POTASSIUM 3.9 mmol/L (3.5-5.1)
[2024-10-08] MEDS ORDERED: CARVEDILOL 12.5 MG TABLET PO SCH (09:00)
[2024-10-08] MEDS ORDERED: LISINOPRIL (20MG) 20 MG TABLET PO SCH (09:00)
[2024-10-08] MEDS: INSULIN GLARGINE, 100 UNIT/ML CARTRIDGE SQ SCH (09:43)
[2024-10-08] MEDS ORDERED: DEXTROSE 50%-WATER 50 ML DISP.SYRIN IV PRN (10:00)
[2024-10-08] MEDS: INSULIN REGULAR, HUMAN 100 UNIT/ML 3 ML VIAL SQ PRN (11:35)
[2024-10-08] MEDS: BLOOD SUGAR DIAGNOSTIC 1 EACH STRIP VI SCH (11:37)
[2024-10-08 12:00] VITALS: BP 143/84; TEMP 98.2; O2SAT 97
[2024-10-08] MEDS: BRIMONIDINE TARTRATE OPHT SOLN 5 ML BOTTLE EACHEYE SCH (12:01)
[2024-10-08 16:00] VITALS: BP 101/59; TEMP 98.2; O2SAT 98
[2024-10-08 20:00] VITALS: BP 151/79; TEMP 97.9; O2SAT 99
[2024-10-08] MEDS: LATANOPROST EYE DROP 0.005% 2.5 ML BOTTLE EACHEYE SCH (21:49)
[2024-10-09] MEDS: ZOLPIDEM TARTRATE 5 MG TABLET PO PRN (01:35)
[2024-10-09 04:00] VITALS: BP 172/92; TEMP 98.1; O2SAT 99
[2024-10-09 08:00] VITALS: BP 188/97; TEMP 97.9; O2SAT 100
[2024-10-09 08:49] LABS: BASOPHILS # (AUTO) 0.1 K/uL (0.0-0.2); BASOPHILS % (AUTO) 0.8 % (0.0-2.0); EOSINOPHILS # (AUTO) 0.2 K/uL (0.0-0.7); EOSINOPHILS % (AUTO) 2.7 % (0.0-6.0); HEMATOCRIT 27 % (39-51); LYMPHOCYTES # (AUTO) 1.8 K/uL (0.8-4.8); LYMPHOCYTES % (AUTO) 23.7 % (20.0-44.0); MEAN CORPUSCULAR HEMOGLOBIN 31 PG (26.0-33.0); MEAN CORPUSCULAR HGB CONC 36 g/dl (31.0-36.0); MEAN CORPUSCULAR VOLUME 86 fL (80-96); MONOCYTES # (AUTO) 0.6 K/uL (0.1-1.30); MONOCYTES % (AUTO) 8.1 % (2.0-12.0); NEUTROPHILS % (AUTO) 64.7 % (43.0-81.0); PLATELET COUNT (AUTO) 207 K/uL (150-450); RED BLOOD CELL COUNT(AUTO) 3.18 MIL/uL (4.5-6.0); RED CELL DISTRIBUTION WIDTH 13.4 % (11.5-15.0); WHITE BLOOD COUNT (AUTO) 7.8 K/uL (4.3-11.0)
[2024-10-09 08:51] LABS: CREATININE 1.8 mg/dL (0.6-1.3); POTASSIUM 3.7 mmol/L (3.5-5.1)
[2024-10-09] MEDS: FUROSEMIDE 20 MG TABLET PO SCH (09:05)
[2024-10-09 10:40] VITALS: BP 169/94; TEMP 98.1; O2SAT 100
[2024-10-09] MEDS: NIFEdipine XL (30MG) 30 MG TAB PO SCH (10:42)
[2024-10-09 16:00] VITALS: BP 139/83; TEMP 98.2; O2SAT 100
[2024-10-09 20:00] VITALS: BP 107/71; TEMP 98.1; O2SAT 99
[2024-10-09] MEDS: *INSULIN REGULAR(HUMULIN R)HUM 100 UNIT/ML VIAL SQ PRN (21:36)
[2024-10-10 04:00] VITALS: BP 128/79; TEMP 97.5; O2SAT 97
[2024-10-10 08:00] VITALS: BP 140/84; TEMP 98.4; O2SAT 97
[2024-10-10] MEDS: INSULIN GLARGINE, 100 UNIT/ML CARTRIDGE SQ SCH (09:00)
[2024-10-10 09:13] LABS: CALCIUM, SERUM 7.9 mg/dL (8.5-10.1); CREATININE 2.2 mg/dL (0.6-1.3); POTASSIUM 3.7 mmol/L (3.5-5.1)
[2024-10-10] MEDS ORDERED: FURO20TA4 PO (09:43)
[2024-10-10] MEDS ORDERED: NIFE-35 PO (09:43)
[2024-10-10] MEDS ORDERED: Insulin Glargine,Hum SQ (09:43)
[2024-10-10 10:06] VITALS: BP 140/84
[2024-10-11] MEDS ORDERED: INSULIN GLARGINE, 100 UNIT/ML CARTRIDGE SQ SCH (09:00)
== END 2024-10-10 12:57 | disposition home or self-care (01) | DRG 199 ==
LOC: ER 10:25 → TELE1 20:30 → MEDSG1 10-08 12:53
PROVIDERS: ADMIT Internal Medicine; ATTEND Internal Medicine
DX: I16.0 Hypertensive urgency (principal); I50.9 Heart failure, unspecified; E11.36 Type 2 diabetes mellitus with diabetic cataract; I11.0 Hypertensive heart disease with heart failure; Z79.4 Long term (current) use of insulin; Z87.81 Personal history of (healed) traumatic fracture; Z79.84 Long term (current) use of oral hypoglycemic drugs; Z79.899 Other long term (current) drug therapy; Z91.148 Patient's other noncompliance with medication regimen for other reason; N40.1 Benign prostatic hyperplasia with lower urinary tract symptoms; K52.9 Noninfective gastroenteritis and colitis, unspecified; D64.9 Anemia, unspecified; H40.9 Unspecified glaucoma; R33.8 Other retention of urine
CPT/HCPCS: 36415; 70450-TC; 71045-TC; 80048-TC; 80076-TC; 81001; 82010-TC; 82803-TC; 82962-TC; 83540-TC; 83690-TC; 83735-TC; 83880; 84484-TC; 85025-TC; 93307-TC; 93971-TC; A4223; G0378; J0360; J0780; J1815; J2270; J2405; J3490; J7030

== ENCOUNTER 2024-10-25 12:11 | Inpatient (IN) | payer MEDICAID ==
[~2024-10-25] VITALS: Ht 172.7 cm; Wt 71.2 kg
[~2024-10-25 12:11] MED LIST changes: -AMLO-213 PO; -ATRO2DRO4 RIGHTEYE; -BRIM5DRO11 EACHEYE; -DORZ10DR11 EACHEYE; -ENOX40DI SQ; -FERR-68 PO; -FURO-145 PO; +FURO20TA4 PO; -Hydrocodone/Apap 5/325MG PO; -INSU100I26 SQ; +Insulin Glargine,Hum SQ; -LATA2.5D15 EACHEYE; -MUPI1OIN5 TP; +NIFE-35 PO; -ONDA4TAB5 PO; -PANT40SU PO; -SUCR1TAB31 PO; -TAMS-12 PO
[2024-10-25] MEDS ORDERED: FAMOTIDINE/PF INJ 20 MG/2 ML VIAL IV ONE (12:28)
[2024-10-25] MEDS ORDERED: ONDANSETRON HCL/PF 4 MG/2 ML VIAL ONE ×2 (12:28→19:41)
[2024-10-25] MEDS: FAMOTIDINE/PF INJ 20 MG/2 ML VIAL IV ONE (12:46)
[2024-10-25] MEDS: ONDANSETRON HCL/PF 4 MG/2 ML VIAL IVP ONE ×2 (12:46→17:31)
[2024-10-25] MEDS: IV NS 0.9% 1,000 ML BAG IV ONE (12:46)
[2024-10-25 13:00] LABS: BASOPHILS # (AUTO) 0.1 K/uL (0.0-0.2); BASOPHILS % (AUTO) 0.9 % (0.0-2.0); EOSINOPHILS % (AUTO) 0.3 % (0.0-6.0); HEMATOCRIT 34 % (39-51); HEMOGLOBIN 11.9 g/dL (13.5-17.5); LYMPHOCYTES # (AUTO) 0.9 K/uL (0.8-4.8); LYMPHOCYTES % (AUTO) 8.9 % (20.0-44.0); MEAN CORPUSCULAR HEMOGLOBIN 31 PG (26.0-33.0); MEAN CORPUSCULAR HGB CONC 35 g/dl (31.0-36.0); MEAN CORPUSCULAR VOLUME 88 fL (80-96); MONOCYTES # (AUTO) 0.4 K/uL (0.1-1.30); MONOCYTES % (AUTO) 4.4 % (2.0-12.0); NEUTROPHILS # (AUTO) 8.4 K/uL (1.8-8.9); NEUTROPHILS % (AUTO) 85.5 % (43.0-81.0); PLATELET COUNT (AUTO) 211 K/uL (150-450); RED BLOOD CELL COUNT(AUTO) 3.83 MIL/uL (4.5-6.0); RED CELL DISTRIBUTION WIDTH 13.3 % (11.5-15.0); WHITE BLOOD COUNT (AUTO) 9.8 K/uL (4.3-11.0)
[2024-10-25 13:17] LABS: CALCIUM, SERUM 9.3 mg/dL (8.5-10.1); CARBON DIOXIDE 28 mmol/L (21-32); CHLORIDE 103 mmol/L (98-107); CREATININE 1.7 mg/dL (0.6-1.3); GLUCOSE 276 mg/dL (74-106); POTASSIUM 4.3 mmol/L (3.5-5.1); SODIUM SERUM 139 mmol/L (136-145); UREA NITROGEN, BLOOD 19 mg/dL (7-18)
[2024-10-25 13:23] LABS: ALANINE AMINOTRANSFERASE 18 U/L (12-78); ALBUMIN 3.3 g/dL (3.4-5.0); ALKALINE PHOSPHATASE 94 U/L (46-116); ASPARTATE AMINOTRANSFERASE 20 U/L (15-37); BILIRUBIN,DIRECT 0.2 mg/dL (0.0-0.2); BILIRUBIN,TOTAL 0.8 mg/dL (0.2-1.0); PARTIAL THROMBOPLASTIN TIME 23.1 SEC (24.3-34.3); PROTHROMBIN TIME 10.6 SECS (9.2-11.1); TOTAL PROTEIN, SERUM 7.2 g/dL (6.4-8.2)
[2024-10-25 15:07] LABS: APPEARANCE,URINE CLEAR (CLEAR); BILIRUBIN,URINE NEGATIVE (NEGATIVE); BLOOD, URINE 1+ Ery/uL (NEGATIVE); COLOR,URINE YELLOW (YELLOW); KETONES,URINE 1+ mg/dL (NEGATIVE); LEUKOCYTE ESTERASE ,URINE NEGATIVE (NEGATIVE); NITRITE, URINE NEGATIVE (NEGATIVE); PROTEIN,URINE 3+ mg/dl (NEGATIVE); UGLUCOSE 2+ mg/dL (NEGATIVE); UROBILINOGEN,URINE 0.2 EU/dL (0.2)
[2024-10-25 15:22] LABS: ADD URINE CULTURE NO; BACTERIA,URINE RARE /HPF (None Seen); WBC,URINE 0-2 /HPF (0-3)
[2024-10-25 15:23] LABS: MUCUS,URINE Few /LPF (None Seen)
[2024-10-25] MEDS ORDERED: ENALAPRILAT INJ (1.25 MG/ML) 1.25 MG/ML VIAL IV ONE ×2 (15:28→17:39)
[2024-10-25] MEDS: ENALAPRILAT INJ (1.25 MG/ML) 1.25 MG/ML VIAL IV PRN (15:32)
[2024-10-25] MEDS ORDERED: NIFE-34 PO (16:54)
[2024-10-25] MEDS ORDERED: GABA-532 PO (16:54)
[2024-10-25] MEDS ORDERED: AMLO-213 PO (16:54)
[2024-10-25] MEDS ORDERED: POTA10TA10 PO (16:54)
[2024-10-25] MEDS ORDERED: METF-442 PO (16:54)
[2024-10-25] MEDS ORDERED: PANT40TA49 PO (16:54)
[2024-10-25] MEDS ORDERED: ONDA-97 PO (16:54)
[2024-10-25] MEDS ORDERED: ENALAPRILAT INJ (1.25 MG/ML) 1.25 MG/ML VIAL IV PRN (17:30)
[2024-10-25] MEDS: HYDROMORPHONE INJ 2 MG/ML DISP.SYRIN IV ONE (17:31)
[2024-10-25] MEDS: HYDROCODONE/APAP 5/325MG TABLET PO ONE ×2 (18:00→22:16)
[2024-10-25] MEDS ORDERED: DEXTROSE 50%-WATER 50 ML DISP.SYRIN IV PRN (18:00)
[2024-10-25] MEDS ORDERED: HYDROMORPHONE INJ SYRINGE 1 MG in IV D5W 50 ML IV PRN (18:00)
[2024-10-25] MEDS: ONDANSETRON HCL/PF - ER 4 MG/2 ML VIAL IV ONE (19:44)
[2024-10-25] MEDS: PANTOPRAZOLE 40 MG VIAL IV SCH (21:17)
[2024-10-25] MEDS: BLOOD SUGAR DIAGNOSTIC 1 EACH STRIP VI SCH (21:49)
[2024-10-25] MEDS: *INSULIN REGULAR(HUMULIN R)HUM 100 UNIT/ML VIAL SQ PRN (22:16)
[2024-10-25 23:00] VITALS: BP 175/101; TEMP 97.9; O2SAT 98
[2024-10-25] MEDS: NIFEdipine XL (30MG) 30 MG TAB PO ONE (23:06)
[2024-10-26] VITALS: BP 170/90; TEMP 98.1; O2SAT 95
[2024-10-26] MEDS: ONDANSETRON HCL/PF 4 MG/2 ML VIAL IV PRN (01:20)
[2024-10-26] MEDS: CLONIDINE HCL 0.1 MG TABLET PO PRN (01:28)
[2024-10-26 04:00] VITALS: BP 168/95; TEMP 98.4; O2SAT 100
[2024-10-26] MEDS: HYDROMORPHONE 1 MG/1 ML DISP.SYRIN IV PRN (05:59)
[2024-10-26] MEDS: INSULIN REGULAR, HUMAN 100 UNIT/ML 3 ML VIAL SQ PRN (06:26)
[2024-10-26 07:00] VITALS: BP 125/74; TEMP 98.6; O2SAT 100
[2024-10-26 07:19] LABS: BASOPHILS # (AUTO) 0.1 K/uL (0.0-0.2); BASOPHILS % (AUTO) 1.2 % (0.0-2.0); EOSINOPHILS # (AUTO) 0.1 K/uL (0.0-0.7); EOSINOPHILS % (AUTO) 0.8 % (0.0-6.0); HEMATOCRIT 28 % (39-51); HEMOGLOBIN 10.2 g/dL (13.5-17.5); LYMPHOCYTES # (AUTO) 1.4 K/uL (0.8-4.8); LYMPHOCYTES % (AUTO) 19.6 % (20.0-44.0); MEAN CORPUSCULAR HEMOGLOBIN 32 PG (26.0-33.0); MEAN CORPUSCULAR HGB CONC 37 g/dl (31.0-36.0); MEAN CORPUSCULAR VOLUME 86 fL (80-96); MONOCYTES # (AUTO) 0.6 K/uL (0.1-1.30); MONOCYTES % (AUTO) 8.3 % (2.0-12.0); NEUTROPHILS # (AUTO) 4.9 K/uL (1.8-8.9); NEUTROPHILS % (AUTO) 70.1 % (43.0-81.0); PLATELET COUNT (AUTO) 214 K/uL (150-450); RED BLOOD CELL COUNT(AUTO) 3.21 MIL/uL (4.5-6.0); RED CELL DISTRIBUTION WIDTH 12.9 % (11.5-15.0)
[2024-10-26 07:22] LABS: ALBUMIN 2.7 g/dL (3.4-5.0); BILIRUBIN,TOTAL 0.6 mg/dL (0.2-1.0); CALCIUM, SERUM 8.9 mg/dL (8.5-10.1); CREATININE 1.7 mg/dL (0.6-1.3); POTASSIUM 3.9 mmol/L (3.5-5.1); TOTAL PROTEIN, SERUM 5.9 g/dL (6.4-8.2)
[2024-10-26] MEDS: GABAPENTIN 100 MG CAPSULE PO SCH (09:00)
[2024-10-26] MEDS: NIFEdipine XL (30MG) 30 MG TAB PO SCH (09:00)
[2024-10-26] MEDS ORDERED: NIFEdipine XL (30MG) 30 MG TAB PO SCH (09:00)
[2024-10-26] MEDS: INSULIN GLARGINE, 100 UNIT/ML CARTRIDGE SQ SCH (09:00)
[2024-10-26 11:30] VITALS: BP 164/81; TEMP 97.7; O2SAT 99
[2024-10-26 16:00] VITALS: BP 136/85; TEMP 98.4; O2SAT 98
[2024-10-26 20:00] VITALS: BP 104/70; TEMP 98.4; O2SAT 98
[2024-10-26] MEDS: ACETAMINOPHEN 325 MG TABLET PO PRN (21:42)
[2024-10-27] VITALS (7 sets, daily range): BP systolic 113–137; BP diastolic 56–73; TEMP 98.1–98.4; O2SAT 97–100
[2024-10-27 06:33] LABS: CALCIUM, SERUM 8.3 mg/dL (8.5-10.1); CREATININE 2.3 mg/dL (0.6-1.3)
[2024-10-27] MEDS: IV 1/2NS 1000 ML 1,000 ML IV PRN (09:17)
[2024-10-27] MEDS: METOCLOPRAMIDE HCL 10 MG/10 ML UDC GT SCH (20:51)
[2024-10-28] VITALS: BP 123/67; TEMP 98.8; O2SAT 97
[2024-10-28 04:30] VITALS: BP 123/68; TEMP 99; O2SAT 98
[2024-10-28 07:00] VITALS: BP 140/74; TEMP 97.7; O2SAT 98
[2024-10-28 07:00] LABS: BASOPHILS % (AUTO) 0.6 % (0.0-2.0); EOSINOPHILS # (AUTO) 0.2 K/uL (0.0-0.7); EOSINOPHILS % (AUTO) 2.5 % (0.0-6.0); HEMATOCRIT 24 % (39-51); HEMOGLOBIN 8.6 g/dL (13.5-17.5); LYMPHOCYTES # (AUTO) 1.8 K/uL (0.8-4.8); LYMPHOCYTES % (AUTO) 30.2 % (20.0-44.0); MEAN CORPUSCULAR HEMOGLOBIN 31 PG (26.0-33.0); MEAN CORPUSCULAR HGB CONC 35 g/dl (31.0-36.0); MEAN CORPUSCULAR VOLUME 87 fL (80-96); MONOCYTES # (AUTO) 0.5 K/uL (0.1-1.30); MONOCYTES % (AUTO) 8.5 % (2.0-12.0); NEUTROPHILS # (AUTO) 3.6 K/uL (1.8-8.9); NEUTROPHILS % (AUTO) 58.2 % (43.0-81.0); PLATELET COUNT (AUTO) 179 K/uL (150-450); RED BLOOD CELL COUNT(AUTO) 2.81 MIL/uL (4.5-6.0); RED CELL DISTRIBUTION WIDTH 13.1 % (11.5-15.0); WHITE BLOOD COUNT (AUTO) 6.1 K/uL (4.3-11.0)
[2024-10-28 07:25] LABS: CALCIUM, SERUM 8.1 mg/dL (8.5-10.1); CREATININE 2.8 mg/dL (0.6-1.3); POTASSIUM 4.2 mmol/L (3.5-5.1)
[2024-10-28] MEDS ORDERED: PANT40TA2 PO (09:14)
[2024-10-28] MEDS ORDERED: METO10TA3 PO (09:14)
[2024-10-28 11:30] VITALS: BP 126/71; TEMP 98.4; O2SAT 98
[2024-10-28] MEDS: METOCLOPRAMIDE HCL 10 MG TABLET PO SCH (12:34)
[2024-10-28 16:00] VITALS: BP 144/72; TEMP 97.7; O2SAT 100
[2024-10-29] MEDS ORDERED: INSULIN GLARGINE, 100 UNIT/ML CARTRIDGE SQ SCH (09:00)
== END 2024-10-28 19:50 | disposition home or self-care (01) | DRG 241 ==
LOC: ER 12:19 → TELE 20:32 → MED 10-28 18:21
PROVIDERS: ADMIT Internal Medicine; ATTEND Internal Medicine
PROC: 0DB68ZX Excision of Stomach, Via Natural or Artificial Opening Endoscopic, Diagnostic (ICD-10-PCS; principal; 2024-10-27)
DX: K29.70 Gastritis, unspecified, without bleeding (principal); E11.43 Type 2 diabetes mellitus with diabetic autonomic (poly)neuropathy; E11.22 Type 2 diabetes mellitus with diabetic chronic kidney disease; I13.0 Hypertensive heart and chronic kidney disease with heart failure and stage 1 through stage 4 chronic kidney disease, or unspecified chronic kidney disease; I50.9 Heart failure, unspecified; K31.84 Gastroparesis; E78.5 Hyperlipidemia, unspecified; D64.9 Anemia, unspecified; H40.9 Unspecified glaucoma; I16.0 Hypertensive urgency; N18.30 Chronic kidney disease, stage 3 unspecified; Z96.641 Presence of right artificial hip joint; Z79.4 Long term (current) use of insulin; Z79.84 Long term (current) use of oral hypoglycemic drugs; Z79.899 Other long term (current) drug therapy; N40.0 Benign prostatic hyperplasia without lower urinary tract symptoms
CPT/HCPCS: 36415; 71045-TC; 80048-TC; 80053-TC; 80076-TC; 81001; 82962-TC; 84484-TC; 85025-TC; 85730-TC; A4223; A9541; G0378; J1171; J1815; J2405; J2470; J2704; J3490; J7030; J7050; J8597

== ENCOUNTER 2024-12-04 19:40 | Inpatient (IN) | payer MEDICAID ==
[~2024-12-04] VITALS: Ht 172.7 cm; Wt 78.5 kg
[~2024-12-04 19:40] MED LIST changes: -BENA40TA8 PO; -FURO20TA4 PO; +GABA-532 PO; +METF-442 PO; +METO10TA3 PO; +PANT40TA2 PO
[2024-12-04] MEDS ORDERED: LABETALOL 20 MG/4 ML VIAL ONE (20:16)
[2024-12-04] MEDS: LABETALOL 20 MG/4 ML VIAL IV ONE (20:21)
[2024-12-04 20:22] LABS: BASOPHILS # (AUTO) 0.1 K/uL (0.0-0.2); EOSINOPHILS # (AUTO) 0.2 K/uL (0.0-0.7); EOSINOPHILS % (AUTO) 2.2 % (0.0-6.0)
[2024-12-04 20:27] LABS: BASOPHILS % (AUTO) 1.2 % (0.0-2.0); HEMATOCRIT 31 % (39-51); LYMPHOCYTES # (AUTO) 1.7 K/uL (0.8-4.8); LYMPHOCYTES % (AUTO) 22.4 % (20.0-44.0); MEAN CORPUSCULAR HEMOGLOBIN 31 PG (26.0-33.0); MEAN CORPUSCULAR HGB CONC 36 g/dl (31.0-36.0); MEAN CORPUSCULAR VOLUME 87 fL (80-96); MONOCYTES # (AUTO) 0.6 K/uL (0.1-1.30); MONOCYTES % (AUTO) 7.3 % (2.0-12.0); NEUTROPHILS % (AUTO) 66.9 % (43.0-81.0); PLATELET COUNT (AUTO) 247 K/uL (150-450); RED BLOOD CELL COUNT(AUTO) 3.56 MIL/uL (4.5-6.0); RED CELL DISTRIBUTION WIDTH 13.5 % (11.5-15.0); WHITE BLOOD COUNT (AUTO) 7.5 K/uL (4.3-11.0)
[2024-12-04 20:37] LABS: MAGNESIUM 1.9 mg/dL (1.8-2.4)
[2024-12-04 20:45] LABS: CALCIUM, SERUM 9.3 mg/dL (8.5-10.1); CARBON DIOXIDE 30 mmol/L (21-32); CHLORIDE 104 mmol/L (98-107); CREATININE 2.2 mg/dL (0.6-1.3); GLUCOSE 228 mg/dL (74-106); POTASSIUM 4.6 mmol/L (3.5-5.1); SODIUM SERUM 140 mmol/L (136-145); UREA NITROGEN, BLOOD 34 mg/dL (7-18)
[2024-12-04 20:48] LABS: THYROID STIMULATING HORMONE 1.65 uIU/mL (0.358-3.74)
[2024-12-04 20:51] LABS: ALANINE AMINOTRANSFERASE 16 U/L (12-78); ALKALINE PHOSPHATASE 89 U/L (46-116); ASPARTATE AMINOTRANSFERASE 17 U/L (15-37); BILIRUBIN,DIRECT 0.1 mg/dL (0.0-0.2); BILIRUBIN,TOTAL 0.4 mg/dL (0.2-1.0); NT-PRO BNP 875 pg/mL (0-125)
[2024-12-04] MEDS ORDERED: ESMOLOL IN SODIUM CHLORIDE,ISO 2,000 MG in PREMIX 1 EA IV PRN (22:00)
[2024-12-04] MEDS ORDERED: IOHEXOL-350 100 ML VIAL IV ONE (22:18)
[2024-12-04] MEDS ORDERED: IV NS 0.9% 250 ML IV ONE (22:18)
[2024-12-04] MEDS ORDERED: CT SWABBABLE VALVE TRANS SET 1 EA INFUS.SET MC ONE (22:19)
[2024-12-04] MEDS: ASPIRIN 300 MG/SUPP.RECT RC ONE (22:38)
[2024-12-04] MEDS ORDERED: ESMOLOL IVPB PREMIX 250 ML IV ONE (22:44)
[2024-12-04] MEDS: hydrALAZINE HCL IV 20 MG VIAL IV ONE (22:53)
[2024-12-04] MEDS ORDERED: hydrALAZINE HCL IV 20 MG VIAL ONE (22:56)
[2024-12-05] MEDS ORDERED: MORPHINE SULFATE INJ 4 MG/ML DISP.SYRIN ONE (00:40)
[2024-12-05] MEDS: MORPHINE SULFATE INJ 2 MG/ML DISP.SYRIN IV ONE ×2 (00:42→05:30)
[2024-12-05] MEDS ORDERED: hydrALAZINE HCL IV 20 MG VIAL ONE (04:16)
[2024-12-05] MEDS: hydrALAZINE HCL IV 20 MG VIAL IV ONE (04:25)
[2024-12-05] MEDS ORDERED: ONDANSETRON HCL/PF 4 MG/2 ML VIAL ONE (05:13)
[2024-12-05] MEDS: ONDANSETRON HCL/PF 4 MG/2 ML VIAL IV ONE (05:14)
[2024-12-05] MEDS ORDERED: MORPHINE SULFATE INJ 2 MG/ML DISP.SYRIN ONE ×2 (05:31→05:36)
[2024-12-05] MEDS ORDERED: METOCLOPRAMIDE HCL 10 MG TABLET ONE (09:21)
[2024-12-05] MEDS ORDERED: PANTOPRAZOLE 40 MG TABLET.DR PO ONE (09:22)
[2024-12-05] MEDS ORDERED: ASPIRIN 81 MG TAB.CHEW ONE (09:22)
[2024-12-05] MEDS: METOCLOPRAMIDE HCL 10 MG TABLET PO SCH (09:29)
[2024-12-05] MEDS: PANTOPRAZOLE 40 MG TABLET.DR PO SCH (09:29)
[2024-12-05] MEDS: ASPIRIN EC 81 MG TABLET.DR PO ONE (09:29)
[2024-12-05] MEDS ORDERED: Z GUARD REMEDY 4 OZ OINT TP PRN (09:30)
[2024-12-05] MEDS ORDERED: MAGNESIUM HYDROXIDE 30 ML UDC PO PRN (09:30)
[2024-12-05] MEDS ORDERED: DEXTROSE 50%-WATER 50 ML DISP.SYRIN IV PRN (09:30)
[2024-12-05] MEDS ORDERED: MAG HYDROX/AL HYDROX/SIMETH 30 ML UDC PO PRN (09:30)
[2024-12-05] MEDS: INSULIN REGULAR, HUMAN 100 UNIT/ML 3 ML VIAL SQ PRN (09:59)
[2024-12-05] MEDS: NIFEdipine XL (30MG) 30 MG TAB PO SCH (10:03)
[2024-12-05 10:25] LABS: THYROID STIMULATING HORMONE 1.4 uIU/mL (0.358-3.74)
[2024-12-05] MEDS ORDERED: ACETAMINOPHEN 325 MG TABLET ONE (11:07)
[2024-12-05] MEDS: ACETAMINOPHEN 325 MG TABLET PO PRN (11:10)
[2024-12-05] MEDS: BLOOD SUGAR DIAGNOSTIC 1 EACH STRIP VI SCH (13:00)
[2024-12-05] MEDS: *INSULIN REGULAR(HUMULIN R)HUM 100 UNIT/ML VIAL SQ PRN (13:05)
[2024-12-05] MEDS: HEPARIN SODIUM, PORCINE 5000 UNITS/1 ML VIAL SQ SCH (19:02)
[2024-12-05 20:00] VITALS: BP 151/89; TEMP 98.2; O2SAT 96
[2024-12-05] MEDS ORDERED: ZOLPIDEM TARTRATE 5 MG TABLET PO PRN (22:00)
[2024-12-05] MEDS: ATORVASTATIN 10 MG TABLET PO SCH (23:05)
[2024-12-05] MEDS: INSULIN GLARGINE, 100 UNIT/ML CARTRIDGE SQ SCH (23:09)
[2024-12-05 23:23] LABS: BASOPHILS # (AUTO) 0.1 K/uL (0.0-0.2); BASOPHILS % (AUTO) 1.1 % (0.0-2.0); EOSINOPHILS # (AUTO) 0.2 K/uL (0.0-0.7); EOSINOPHILS % (AUTO) 2.2 % (0.0-6.0); HEMATOCRIT 28 % (39-51); LYMPHOCYTES # (AUTO) 1.7 K/uL (0.8-4.8); LYMPHOCYTES % (AUTO) 21.3 % (20.0-44.0); MEAN CORPUSCULAR HEMOGLOBIN 31 PG (26.0-33.0); MEAN CORPUSCULAR HGB CONC 36 g/dl (31.0-36.0); MEAN CORPUSCULAR VOLUME 87 fL (80-96); MONOCYTES # (AUTO) 0.6 K/uL (0.1-1.30); MONOCYTES % (AUTO) 7.9 % (2.0-12.0); NEUTROPHILS # (AUTO) 5.5 K/uL (1.8-8.9); NEUTROPHILS % (AUTO) 67.5 % (43.0-81.0); PLATELET COUNT (AUTO) 232 K/uL (150-450); RED CELL DISTRIBUTION WIDTH 13.3 % (11.5-15.0); WHITE BLOOD COUNT (AUTO) 8.2 K/uL (4.3-11.0)
[2024-12-05 23:29] LABS: CALCIUM, SERUM 8.8 mg/dL (8.5-10.1); CREATININE 2.9 mg/dL (0.6-1.3); POTASSIUM 4.4 mmol/L (3.5-5.1)
[2024-12-05 23:38] LABS: INR 0.97 (0.91-1.10); PARTIAL THROMBOPLASTIN TIME 24.8 SEC (24.3-34.3); PROTHROMBIN TIME 10.3 SECS (9.2-11.1)
[2024-12-06] VITALS: BP 139/78; TEMP 98.2; O2SAT 97
[2024-12-06] MEDS: ONDANSETRON HCL/PF 4 MG/2 ML VIAL IVP PRN (03:30)
[2024-12-06 04:00] VITALS: BP 125/71; TEMP 98.2; O2SAT 98
[2024-12-06 06:44] LABS: BASOPHILS # (AUTO) 0.1 K/uL (0.0-0.2); BASOPHILS % (AUTO) 1.1 % (0.0-2.0); EOSINOPHILS # (AUTO) 0.1 K/uL (0.0-0.7); EOSINOPHILS % (AUTO) 1.9 % (0.0-6.0); HEMATOCRIT 25 % (39-51); HEMOGLOBIN 8.9 g/dL (13.5-17.5); LYMPHOCYTES # (AUTO) 1.5 K/uL (0.8-4.8); LYMPHOCYTES % (AUTO) 22.9 % (20.0-44.0); MEAN CORPUSCULAR HEMOGLOBIN 31 PG (26.0-33.0); MEAN CORPUSCULAR HGB CONC 35 g/dl (31.0-36.0); MEAN CORPUSCULAR VOLUME 87 fL (80-96); MONOCYTES # (AUTO) 0.4 K/uL (0.1-1.30); MONOCYTES % (AUTO) 6.3 % (2.0-12.0); NEUTROPHILS # (AUTO) 4.4 K/uL (1.8-8.9); NEUTROPHILS % (AUTO) 67.8 % (43.0-81.0); PLATELET COUNT (AUTO) 199 K/uL (150-450); RED BLOOD CELL COUNT(AUTO) 2.89 MIL/uL (4.5-6.0); RED CELL DISTRIBUTION WIDTH 13.2 % (11.5-15.0); WHITE BLOOD COUNT (AUTO) 6.5 K/uL (4.3-11.0)
[2024-12-06 07:01] LABS: CALCIUM, SERUM 8.2 mg/dL (8.5-10.1); CREATININE 2.9 mg/dL (0.6-1.3); PHOSPHORUS 6.1 mg/dL (2.5-4.9); POTASSIUM 4.3 mmol/L (3.5-5.1)
[2024-12-06 08:00] VITALS: BP 130/80; TEMP 98.6; O2SAT 99
[2024-12-06] MEDS: GABAPENTIN 100 MG CAPSULE PO SCH (08:17)
[2024-12-06] MEDS: CLOPIDOGREL BISULFATE 75 MG TABLET PO SCH (11:03)
[2024-12-06] MEDS: ASPIRIN EC 81 MG TABLET.DR PO SCH (11:03)
[2024-12-06 12:00] VITALS: BP 153/93; TEMP 97.9; O2SAT 98
[2024-12-06] MEDS: HYDROCODONE/APAP 5/325MG TABLET PO PRN (15:09)
[2024-12-06 16:00] VITALS: BP 121/71; TEMP 97.9; O2SAT 100
[2024-12-06 20:00] VITALS: BP 131/71; TEMP 98.4; O2SAT 98
[2024-12-06] MEDS: HEPARIN SODIUM, PORCINE 5000 UNITS/1 ML VIAL SQ SCH (21:54)
[2024-12-06] MEDS: ATORVASTATIN 10 MG TABLET PO SCH (22:59)
[2024-12-07] VITALS: BP 135/80; TEMP 98.4; O2SAT 99
[2024-12-07 04:00] VITALS: BP 111/75; TEMP 98.6; O2SAT 99
[2024-12-07 06:47] LABS: BASOPHILS # (AUTO) 0.1 K/uL (0.0-0.2); BASOPHILS % (AUTO) 1.4 % (0.0-2.0); EOSINOPHILS # (AUTO) 0.2 K/uL (0.0-0.7); EOSINOPHILS % (AUTO) 3.2 % (0.0-6.0); HEMATOCRIT 23 % (39-51); HEMOGLOBIN 8.2 g/dL (13.5-17.5); LYMPHOCYTES # (AUTO) 1.9 K/uL (0.8-4.8); LYMPHOCYTES % (AUTO) 33.5 % (20.0-44.0); MEAN CORPUSCULAR HEMOGLOBIN 31 PG (26.0-33.0); MEAN CORPUSCULAR HGB CONC 36 g/dl (31.0-36.0); MEAN CORPUSCULAR VOLUME 87 fL (80-96); MONOCYTES # (AUTO) 0.4 K/uL (0.1-1.30); MONOCYTES % (AUTO) 7.8 % (2.0-12.0); NEUTROPHILS # (AUTO) 3.1 K/uL (1.8-8.9); NEUTROPHILS % (AUTO) 54.1 % (43.0-81.0); PLATELET COUNT (AUTO) 199 K/uL (150-450); RED BLOOD CELL COUNT(AUTO) 2.65 MIL/uL (4.5-6.0); RED CELL DISTRIBUTION WIDTH 13.2 % (11.5-15.0); WHITE BLOOD COUNT (AUTO) 5.7 K/uL (4.3-11.0)
[2024-12-07 07:01] LABS: CALCIUM, SERUM 8.4 mg/dL (8.5-10.1); CREATININE 4.5 mg/dL (0.6-1.3); POTASSIUM 4.2 mmol/L (3.5-5.1)
[2024-12-07 08:00] VITALS: BP 127/87; TEMP 98.1; O2SAT 99
[2024-12-07 11:14] LABS: THYROID STIMULATING HORMONE 1.66 uIU/mL (0.358-3.74)
[2024-12-07 12:00] VITALS: BP 152/85; TEMP 98.6; O2SAT 98
[2024-12-07 16:00] VITALS: BP 137/80; TEMP 97.9; O2SAT 99
[2024-12-07 20:00] VITALS: BP 132/79; TEMP 98.2; O2SAT 97
[2024-12-07 22:32] LABS: APPEARANCE,URINE CLEAR (CLEAR); BILIRUBIN,URINE NEGATIVE (NEGATIVE); BLOOD, URINE TRACE-INTA Ery/uL (NEGATIVE); COLOR,URINE YELLOW (YELLOW); KETONES,URINE NEGATIVE (NEGATIVE); LEUKOCYTE ESTERASE ,URINE NEGATIVE (NEGATIVE); NITRITE, URINE NEGATIVE (NEGATIVE); PROTEIN,URINE 3+ mg/dl (NEGATIVE); UGLUCOSE 1+ mg/dL (NEGATIVE); UROBILINOGEN,URINE 0.2 EU/dL (0.2)
[2024-12-07 22:43] LABS: CREATININE, URINE 103.9 MG/DL (30.0-125.0); URINE TOTAL PROTEIN 673.3 mg/dL (0-11.9)
[2024-12-07 23:02] LABS: ADD URINE CULTURE YES; BACTERIA,URINE Few /HPF (None Seen); COARSE GRANULAR CASTS,URINE Moderate /LPF (None Seen); SQUAMOUS EPITHELIAL CELL,UR Moderate /HPF (None Seen)
[2024-12-07 23:56] LABS: EOSINOPHIL,URINE None Seen
[2024-12-08] VITALS (7 sets, daily range): BP systolic 133–172; BP diastolic 73–98; TEMP 97.7–98.2; O2SAT 97–100
[2024-12-08] MEDS: CLONIDINE HCL 0.1 MG TABLET PO PRN (00:50)
[2024-12-08 06:39] LABS: BASOPHILS # (AUTO) 0.1 K/uL (0.0-0.2); BASOPHILS % (AUTO) 1.5 % (0.0-2.0); EOSINOPHILS # (AUTO) 0.2 K/uL (0.0-0.7); EOSINOPHILS % (AUTO) 3.2 % (0.0-6.0); HEMATOCRIT 23 % (39-51); HEMOGLOBIN 8.1 g/dL (13.5-17.5); LYMPHOCYTES # (AUTO) 1.5 K/uL (0.8-4.8); LYMPHOCYTES % (AUTO) 29.6 % (20.0-44.0); MEAN CORPUSCULAR HEMOGLOBIN 31 PG (26.0-33.0); MEAN CORPUSCULAR HGB CONC 36 g/dl (31.0-36.0); MEAN CORPUSCULAR VOLUME 87 fL (80-96); MONOCYTES # (AUTO) 0.4 K/uL (0.1-1.30); MONOCYTES % (AUTO) 8.5 % (2.0-12.0); NEUTROPHILS # (AUTO) 2.9 K/uL (1.8-8.9); NEUTROPHILS % (AUTO) 57.2 % (43.0-81.0); PLATELET COUNT (AUTO) 206 K/uL (150-450); RED BLOOD CELL COUNT(AUTO) 2.63 MIL/uL (4.5-6.0); RED CELL DISTRIBUTION WIDTH 13.5 % (11.5-15.0); WHITE BLOOD COUNT (AUTO) 5.1 K/uL (4.3-11.0)
[2024-12-08 07:05] LABS: ALBUMIN 2.5 g/dL (3.4-5.0); BILIRUBIN,TOTAL 0.3 mg/dL (0.2-1.0); CALCIUM, SERUM 8.5 mg/dL (8.5-10.1); CREATININE 4.3 mg/dL (0.6-1.3); MAGNESIUM 2.4 mg/dL (1.8-2.4); PHOSPHORUS 6.7 mg/dL (2.5-4.9); POTASSIUM 4.5 mmol/L (3.5-5.1); TOTAL PROTEIN, SERUM 5.7 g/dL (6.4-8.2)
[2024-12-08] MEDS ORDERED: NIFEdipine XL (30MG) 30 MG TAB PO SCH (09:00)
[2024-12-08] MEDS: NIFEdipine XL (30MG) 30 MG TAB PO SCH (10:11)
[2024-12-08] MEDS: CEFTRIAXONE 1 G in IV D5W 50 ML IV SCH (10:13)
[2024-12-08] MEDS: IV NS 0.9% 1,000 ML IV ONE (14:15)
[2024-12-09] VITALS: BP 136/76; TEMP 97.7; O2SAT 97
[2024-12-09 04:00] VITALS: BP 133/76; TEMP 97; O2SAT 97
[2024-12-09 05:12] LABS: FOLIC ACID 6.5 ng/mL (>3.0)
[2024-12-09 06:07] LABS: PTH, INTACT 60 pg/mL (15-65)
[2024-12-09 07:01] LABS: BASOPHILS # (AUTO) 0.1 K/uL (0.0-0.2); BASOPHILS % (AUTO) 1.3 % (0.0-2.0); EOSINOPHILS # (AUTO) 0.2 K/uL (0.0-0.7); EOSINOPHILS % (AUTO) 3.4 % (0.0-6.0); HEMATOCRIT 25 % (39-51); LYMPHOCYTES # (AUTO) 1.4 K/uL (0.8-4.8); LYMPHOCYTES % (AUTO) 23.6 % (20.0-44.0); MEAN CORPUSCULAR HEMOGLOBIN 32 PG (26.0-33.0); MEAN CORPUSCULAR HGB CONC 37 g/dl (31.0-36.0); MEAN CORPUSCULAR VOLUME 87 fL (80-96); MONOCYTES # (AUTO) 0.4 K/uL (0.1-1.30); MONOCYTES % (AUTO) 6.7 % (2.0-12.0); NEUTROPHILS # (AUTO) 3.8 K/uL (1.8-8.9); PLATELET COUNT (AUTO) 229 K/uL (150-450); RED BLOOD CELL COUNT(AUTO) 2.85 MIL/uL (4.5-6.0); RED CELL DISTRIBUTION WIDTH 13.3 % (11.5-15.0); WHITE BLOOD COUNT (AUTO) 5.9 K/uL (4.3-11.0)
[2024-12-09 07:16] LABS: ALBUMIN 2.5 g/dL (3.4-5.0); BILIRUBIN,TOTAL 0.3 mg/dL (0.2-1.0); CALCIUM, SERUM 8.6 mg/dL (8.5-10.1); CREATININE 3.2 mg/dL (0.6-1.3); MAGNESIUM 2.3 mg/dL (1.8-2.4); PHOSPHORUS 5.2 mg/dL (2.5-4.9); POTASSIUM 4.2 mmol/L (3.5-5.1)
[2024-12-09 08:00] VITALS: BP 156/89; TEMP 99.1; O2SAT 98
[2024-12-09] MEDS ORDERED: ASPI-1420 PO (08:30)
[2024-12-09] MEDS ORDERED: ATOR40TA PO (08:30)
[2024-12-09] MEDS ORDERED: CLOP75TA15 PO (08:30)
[2024-12-09] MEDS ORDERED: NIFE-35 PO (08:33)
[2024-12-09 12:00] VITALS: BP 150/88; TEMP 97.9; O2SAT 98
== END 2024-12-09 13:32 | disposition home or self-care (01) | DRG 45 ==
LOC: ER 19:43 → TRANSITION 12-05 09:10 → TELE1 12-05 16:12
PROVIDERS: ADMIT Internal Medicine; ATTEND Internal Medicine
DX: I63.81 Other cerebral infarction due to occlusion or stenosis of small artery (principal); N17.0 Acute kidney failure with tubular necrosis; E11.22 Type 2 diabetes mellitus with diabetic chronic kidney disease; I13.0 Hypertensive heart and chronic kidney disease with heart failure and stage 1 through stage 4 chronic kidney disease, or unspecified chronic kidney disease; I50.9 Heart failure, unspecified; E78.5 Hyperlipidemia, unspecified; D64.9 Anemia, unspecified; I16.0 Hypertensive urgency; N18.30 Chronic kidney disease, stage 3 unspecified; M89.8X9 Other specified disorders of bone, unspecified site; Z91.199 Patient's noncompliance with other medical treatment and regimen due to unspecified reason; Z79.899 Other long term (current) drug therapy; Z79.84 Long term (current) use of oral hypoglycemic drugs; Z79.82 Long term (current) use of aspirin; Z79.4 Long term (current) use of insulin; Z79.02 Long term (current) use of antithrombotics/antiplatelets; Z98.890 Other specified postprocedural states; Z87.828 Personal history of other (healed) physical injury and trauma; N40.0 Benign prostatic hyperplasia without lower urinary tract symptoms; T50.8X5A Adverse effect of diagnostic agents, initial encounter; Y92.9 Unspecified place or not applicable; N39.0 Urinary tract infection, site not specified; I70.0 Atherosclerosis of aorta
CPT/HCPCS: 36415; 70450-TC; 70551-TC; 71045-TC; 76770-TC; 80048-TC; 80053-TC; 80061-TC; 80076-TC; 81001; 82550-TC; 82570-TC; 82607-TC; 82962-TC; 83735-TC; 83880; 83921; 83970; 84100-TC; 84155; 84165; 84300-TC; 84425; 84443-TC; 84484-TC; 85025-TC; 85378-TC; 85730-TC; 87086-TC; 92526; 92611-TC; 93307-TC; 93880-TC; 93926-TC; 93971-TC; 97110-TC; 97116-TC; 97530-TC; 97535-TC; G0378; J0360; J0696; J1644; J1815; J2270; J2405; J3490; J7050; J7060; J8597; Q9967

== ENCOUNTER 2024-12-29 01:20 | Inpatient (IN) | payer MEDICAID ==
[~2024-12-29] VITALS: Ht 170.2 cm; Wt 75.7 kg
[~2024-12-29 01:20] MED LIST changes: +ASPI-1420 PO; +ATOR40TA PO; +CLOP75TA15 PO; -METF-442 PO; -METO10TA3 PO
[2024-12-29] MEDS ORDERED: IOHEXOL-350 100 ML VIAL IV ONE (01:35)
[2024-12-29 01:41] LABS: BASOPHILS # (AUTO) 0.1 K/uL (0.0-0.2); BASOPHILS % (AUTO) 1.1 % (0.0-2.0); EOSINOPHILS # (AUTO) 0.1 K/uL (0.0-0.7); EOSINOPHILS % (AUTO) 1.1 % (0.0-6.0); HEMATOCRIT 28 % (39-51); HEMOGLOBIN 10.2 g/dL (13.5-17.5); LYMPHOCYTES # (AUTO) 1.2 K/uL (0.8-4.8); LYMPHOCYTES % (AUTO) 15.6 % (20.0-44.0); MEAN CORPUSCULAR HEMOGLOBIN 31 PG (26.0-33.0); MEAN CORPUSCULAR HGB CONC 36 g/dl (31.0-36.0); MEAN CORPUSCULAR VOLUME 85 fL (80-96); MONOCYTES # (AUTO) 0.6 K/uL (0.1-1.30); MONOCYTES % (AUTO) 7.7 % (2.0-12.0); NEUTROPHILS # (AUTO) 5.5 K/uL (1.8-8.9); NEUTROPHILS % (AUTO) 74.5 % (43.0-81.0); PLATELET COUNT (AUTO) 220 K/uL (150-450); RED BLOOD CELL COUNT(AUTO) 3.32 MIL/uL (4.5-6.0); RED CELL DISTRIBUTION WIDTH 12.8 % (11.5-15.0); WHITE BLOOD COUNT (AUTO) 7.4 K/uL (4.3-11.0)
[2024-12-29] MEDS: LABETALOL 20 MG/4 ML VIAL IV ONE ×2 (01:47→04:29)
[2024-12-29 01:48] LABS: CALCIUM, SERUM 9.6 mg/dL (8.5-10.1); CARBON DIOXIDE 28 mmol/L (21-32); CHLORIDE 103 mmol/L (98-107); CREATININE 1.9 mg/dL (0.6-1.3); GLUCOSE 260 mg/dL (74-106); POTASSIUM 4.2 mmol/L (3.5-5.1); SODIUM SERUM 142 mmol/L (136-145); UREA NITROGEN, BLOOD 22 mg/dL (7-18)
[2024-12-29 01:51] LABS: INR 1.02 (0.91-1.10); PARTIAL THROMBOPLASTIN TIME 24.9 SEC (24.3-34.3); PROTHROMBIN TIME 10.8 SECS (9.2-11.1)
[2024-12-29 01:54] LABS: ALANINE AMINOTRANSFERASE 37 U/L (12-78); ALBUMIN 3.1 g/dL (3.4-5.0); ALKALINE PHOSPHATASE 113 U/L (46-116); ASPARTATE AMINOTRANSFERASE 31 U/L (15-37); BILIRUBIN,DIRECT 0.1 mg/dL (0.0-0.2); BILIRUBIN,TOTAL 0.6 mg/dL (0.2-1.0); TOTAL PROTEIN, SERUM 7.1 g/dL (6.4-8.2)
[2024-12-29 01:59] LABS: CHOLESTEROL 157 mg/dL (<200); HDL CHOLESTEROL 65 mg/dL (40-60); LDL 72 mg/dL (0-99); TRIGLYCERIDES 155 mg/dL (30-150)
[2024-12-29 03:06] LABS: ADD URINE CULTURE NO; APPEARANCE,URINE CLEAR (CLEAR); BACTERIA,URINE Rare /HPF (None Seen); BILIRUBIN,URINE NEGATIVE (NEGATIVE); BLOOD, URINE 1+ Ery/uL (NEGATIVE); COLOR,URINE YELLOW (YELLOW); KETONES,URINE NEGATIVE (NEGATIVE); LEUKOCYTE ESTERASE ,URINE NEGATIVE (NEGATIVE); NITRITE, URINE NEGATIVE (NEGATIVE); PH,URINE 7.5 (5.0-8.0); PROTEIN,URINE 3+ mg/dl (NEGATIVE); RBC,URINE 0-2 /HPF (0-2); SQUAMOUS EPITHELIAL CELL,UR Moderate /HPF (None Seen); UGLUCOSE 2+ mg/dL (NEGATIVE); UROBILINOGEN,URINE 0.2 EU/dL (0.2); WBC,URINE 0-2 /HPF (0-3)
[2024-12-29] MEDS ORDERED: hydrALAZINE HCL IV 20 MG VIAL ONE ×2 (03:18→07:45)
[2024-12-29] MEDS ORDERED: ACETAMINOPHEN ES 500 MG TABLET ONE (03:19)
[2024-12-29] MEDS: hydrALAZINE HCL IV 20 MG VIAL IV ONE ×2 (03:26→07:53)
[2024-12-29] MEDS: ACETAMINOPHEN ES 500 MG TABLET PO ONE (03:26)
[2024-12-29] MEDS ORDERED: ASPIRIN EC 325 MG TABLET.DR PO ONE (04:25)
[2024-12-29] MEDS ORDERED: LABETALOL 20 MG/4 ML VIAL ONE (04:25)
[2024-12-29] MEDS: ASPIRIN EC 325 MG TABLET.DR PO ONE (04:29)
[2024-12-29] MEDS ORDERED: INSU100V7 SQ (05:47)
[2024-12-29] MEDS ORDERED: BENA40TA8 PO (05:52)
[2024-12-29] MEDS ORDERED: DORZ10DR11 EACHEYE (07:46)
[2024-12-29] MEDS ORDERED: ONDANSETRON HCL/PF 4 MG/2 ML VIAL ONE (08:21)
[2024-12-29] MEDS: ONDANSETRON HCL/PF 4 MG/2 ML VIAL IV ONE (08:28)
[2024-12-29] MEDS ORDERED: TIMOLOL MAL/DORZOLAM HCL OPHTH 10 ML BOTTLE EACHEYE SCH (09:30)
[2024-12-29] MEDS ORDERED: Z GUARD REMEDY 4 OZ OINT TP PRN (10:00)
[2024-12-29] MEDS ORDERED: MAG HYDROX/AL HYDROX/SIMETH 30 ML UDC PO PRN (10:00)
[2024-12-29] MEDS ORDERED: ACETAMINOPHEN 325 MG TABLET PO PRN (10:00)
[2024-12-29] MEDS ORDERED: DEXTROSE 50%-WATER 50 ML DISP.SYRIN IV PRN (10:00)
[2024-12-29] MEDS: PANTOPRAZOLE 40 MG TABLET.DR PO SCH (11:43)
[2024-12-29] MEDS: ASPIRIN EC 81 MG TABLET.DR PO SCH (11:44)
[2024-12-29] MEDS: ATORVASTATIN 40 MG TABLET PO SCH (11:44)
[2024-12-29] MEDS: CLOPIDOGREL BISULFATE 75 MG TABLET PO SCH (11:45)
[2024-12-29] MEDS: NIFEDIPINE XL 60 MG TAB.ER.24 PO SCH (11:45)
[2024-12-29] MEDS: MAGNESIUM HYDROXIDE 30 ML UDC PO PRN (11:50)
[2024-12-29 12:00] VITALS: BP 210/100; TEMP 98.6; O2SAT 99
[2024-12-29] MEDS: BLOOD SUGAR DIAGNOSTIC 1 EACH STRIP VI SCH (13:08)
[2024-12-29] MEDS: hydrALAZINE HCL IV 20 MG VIAL IV PRN (13:29)
[2024-12-29] MEDS: METOCLOPRAMIDE HCL 10 MG/2 ML VIAL IV SCH (13:30)
[2024-12-29] MEDS ORDERED: METOCLOPRAMIDE HCL 10 MG/2 ML VIAL IV PRN (13:30)
[2024-12-29] MEDS: *INSULIN REGULAR(HUMULIN R)HUM 100 UNIT/ML VIAL SQ PRN (13:35)
[2024-12-29] MEDS: BISACODYL SUPP (10 MG) 10 MG/SUPP.RECT SUPP.RECT RC PRN (13:42)
[2024-12-29 16:00] VITALS: BP 116/66; TEMP 97.9; O2SAT 97
[2024-12-29] MEDS: HYDROCODONE/APAP 5/325MG TABLET PO PRN (16:42)
[2024-12-29 20:00] VITALS: BP 108/64; TEMP 98.1; O2SAT 97
[2024-12-29] MEDS ORDERED: NITROGLYCERIN 0.4 MG/TAB BOTTLE SL PRN (20:30)
[2024-12-29] MEDS: TIMOLOL MAL/DORZOLAM HCL OPHTH 10 ML BOTTLE EACHEYE SCH (21:06)
[2024-12-29] MEDS: ONDANSETRON HCL/PF 4 MG/2 ML VIAL IVP PRN (22:05)
[2024-12-29] MEDS: ZOLPIDEM TARTRATE 5 MG TABLET PO PRN (22:06)
[2024-12-29] MEDS: INSULIN GLARGINE, 100 UNIT/ML CARTRIDGE SQ SCH (23:14)
[2024-12-29] MEDS: INSULIN REGULAR, HUMAN 100 UNIT/ML 3 ML VIAL SQ PRN (23:22)
[2024-12-30] VITALS: BP 124/74; TEMP 97.7; O2SAT 97
[2024-12-30 04:00] VITALS: BP 129/79; TEMP 98.2; O2SAT 99
[2024-12-30 06:59] LABS: CALCIUM, SERUM 8.9 mg/dL (8.5-10.1); CREATININE 3.1 mg/dL (0.6-1.3)
[2024-12-30 07:36] LABS: BASOPHILS # (AUTO) 0.1 K/uL (0.0-0.2); BASOPHILS % (AUTO) 0.8 % (0.0-2.0); EOSINOPHILS # (AUTO) 0.2 K/uL (0.0-0.7); EOSINOPHILS % (AUTO) 2.3 % (0.0-6.0); HEMATOCRIT 26 % (39-51); LYMPHOCYTES # (AUTO) 1.8 K/uL (0.8-4.8); LYMPHOCYTES % (AUTO) 22.2 % (20.0-44.0); MEAN CORPUSCULAR HEMOGLOBIN 30 PG (26.0-33.0); MEAN CORPUSCULAR HGB CONC 34 g/dl (31.0-36.0); MEAN CORPUSCULAR VOLUME 86 fL (80-96); MONOCYTES # (AUTO) 0.8 K/uL (0.1-1.30); MONOCYTES % (AUTO) 9.9 % (2.0-12.0); NEUTROPHILS # (AUTO) 5.2 K/uL (1.8-8.9); NEUTROPHILS % (AUTO) 64.8 % (43.0-81.0); PLATELET COUNT (AUTO) 226 K/uL (150-450); RED BLOOD CELL COUNT(AUTO) 3.03 MIL/uL (4.5-6.0)
[2024-12-30 08:00] VITALS: BP 142/79; TEMP 98.4; O2SAT 99
[2024-12-30] MEDS: BENAZEPRIL HCL 20 MG TABLET PO SCH (08:19)
[2024-12-30 12:00] VITALS: BP 148/77; TEMP 98.1; O2SAT 98
[2024-12-30 13:03] LABS: POTASSIUM 4.2 mmol/L (3.5-5.1)
[2024-12-30 16:00] VITALS: BP 137/78; TEMP 98.1; O2SAT 98
[2024-12-30 20:00] VITALS: BP 139/77; TEMP 98.1; O2SAT 99
[2024-12-30 21:59] LABS: CREATININE, URINE 98.8 MG/DL (30.0-125.0)
[2024-12-31] VITALS: BP 106/70; TEMP 97.9; O2SAT 100
[2024-12-31 04:00] VITALS: BP 127/84; TEMP 99; O2SAT 99
[2024-12-31 06:45] LABS: BASOPHILS # (AUTO) 0.1 K/uL (0.0-0.2); EOSINOPHILS # (AUTO) 0.2 K/uL (0.0-0.7); HEMATOCRIT 22 % (39-51); HEMOGLOBIN 7.8 g/dL (13.5-17.5); LYMPHOCYTES # (AUTO) 1.7 K/uL (0.8-4.8); LYMPHOCYTES % (AUTO) 24.9 % (20.0-44.0); MEAN CORPUSCULAR HEMOGLOBIN 31 PG (26.0-33.0); MEAN CORPUSCULAR HGB CONC 36 g/dl (31.0-36.0); MEAN CORPUSCULAR VOLUME 86 fL (80-96); MONOCYTES # (AUTO) 0.7 K/uL (0.1-1.30); MONOCYTES % (AUTO) 9.9 % (2.0-12.0); NEUTROPHILS # (AUTO) 4.2 K/uL (1.8-8.9); NEUTROPHILS % (AUTO) 61.2 % (43.0-81.0); PLATELET COUNT (AUTO) 196 K/uL (150-450); RED BLOOD CELL COUNT(AUTO) 2.54 MIL/uL (4.5-6.0); RED CELL DISTRIBUTION WIDTH 12.9 % (11.5-15.0); WHITE BLOOD COUNT (AUTO) 6.9 K/uL (4.3-11.0)
[2024-12-31 06:58] LABS: ALBUMIN 2.6 g/dL (3.4-5.0); BILIRUBIN,TOTAL 0.3 mg/dL (0.2-1.0); CALCIUM, SERUM 8.1 mg/dL (8.5-10.1); CREATININE 4.5 mg/dL (0.6-1.3); MAGNESIUM 2.4 mg/dL (1.8-2.4); PHOSPHORUS 5.5 mg/dL (2.5-4.9); POTASSIUM 4.8 mmol/L (3.5-5.1); TOTAL PROTEIN, SERUM 5.7 g/dL (6.4-8.2)
[2024-12-31 08:00] VITALS: BP 127/95; TEMP 99.9; O2SAT 95
[2024-12-31 12:00] VITALS: BP 144/84; TEMP 97.7; O2SAT 100
[2024-12-31 16:00] VITALS: BP 137/74; TEMP 99; O2SAT 98
[2024-12-31 20:00] VITALS: BP 107/60; TEMP 98.3; O2SAT 98
[2025-01-01] VITALS: BP 125/75; TEMP 98.2; O2SAT 99
[2025-01-01 04:00] VITALS: BP 138/80; TEMP 97.9; O2SAT 99
[2025-01-01 07:01] LABS: CALCIUM, SERUM 8.3 mg/dL (8.5-10.1); CREATININE 5.5 mg/dL (0.6-1.3); POTASSIUM 5.3 mmol/L (3.5-5.1)
[2025-01-01 08:00] VITALS: BP 150/91; TEMP 97.9; O2SAT 99
[2025-01-01 08:07] LABS: PTH, INTACT 75 pg/mL (15-65)
[2025-01-01] MEDS ORDERED: METOCLOPRAMIDE HCL 10 MG/2 ML VIAL IV PRN (08:30)
[2025-01-01 12:00] VITALS: BP 145/80; TEMP 98; O2SAT 99
[2025-01-01] MEDS: SODIUM POLYSTYRENE SULF. PWD 15 GM UDC PO ONE (12:38)
[2025-01-01 16:06] VITALS: BP 158/65; TEMP 98.2; O2SAT 99
[2025-01-01 20:00] VITALS: BP 126/60; TEMP 97.9; O2SAT 100
[2025-01-02] VITALS: BP 137/77; TEMP 98.6; O2SAT 100
[2025-01-02 04:00] VITALS: BP 138/82; TEMP 98.2; O2SAT 100
[2025-01-02 06:33] LABS: BASOPHILS # (AUTO) 0.1 K/uL (0.0-0.2); EOSINOPHILS # (AUTO) 0.1 K/uL (0.0-0.7); EOSINOPHILS % (AUTO) 2.1 % (0.0-6.0); HEMATOCRIT 23 % (39-51); HEMOGLOBIN 8.3 g/dL (13.5-17.5); LYMPHOCYTES # (AUTO) 1.6 K/uL (0.8-4.8); LYMPHOCYTES % (AUTO) 26.5 % (20.0-44.0); MEAN CORPUSCULAR HEMOGLOBIN 30 PG (26.0-33.0); MEAN CORPUSCULAR HGB CONC 35 g/dl (31.0-36.0); MEAN CORPUSCULAR VOLUME 85 fL (80-96); MONOCYTES # (AUTO) 0.6 K/uL (0.1-1.30); MONOCYTES % (AUTO) 9.3 % (2.0-12.0); NEUTROPHILS # (AUTO) 3.6 K/uL (1.8-8.9); NEUTROPHILS % (AUTO) 61.1 % (43.0-81.0); PLATELET COUNT (AUTO) 209 K/uL (150-450); RED BLOOD CELL COUNT(AUTO) 2.74 MIL/uL (4.5-6.0); RED CELL DISTRIBUTION WIDTH 12.8 % (11.5-15.0); WHITE BLOOD COUNT (AUTO) 5.9 K/uL (4.3-11.0)
[2025-01-02 06:41] LABS: CALCIUM, SERUM 8.4 mg/dL (8.5-10.1); CREATININE 4.4 mg/dL (0.6-1.3); POTASSIUM 4.5 mmol/L (3.5-5.1)
[2025-01-02 08:00] VITALS: BP 159/86; TEMP 98.8; O2SAT 99
[2025-01-02 08:40] VITALS: BP 159/86
[2025-01-02] MEDS ORDERED: NIFE-35 PO (10:52)
[2025-01-02] MEDS ORDERED: CLOP75TA15 PO (10:52)
[2025-01-03] MEDS ORDERED: NIFEdipine XL (30MG) 30 MG TAB PO SCH (09:00)
== END 2025-01-02 11:33 | disposition home or self-care (01) | DRG 199 ==
LOC: ER 01:21 → TELE1 10:05 → TELE-TD 12:59 → TELE1 12-30 09:13
PROVIDERS: ADMIT Internal Medicine; ATTEND Internal Medicine
DX: I16.1 Hypertensive emergency (principal); I63.531 Cerebral infarction due to unspecified occlusion or stenosis of right posterior cerebral artery; N17.0 Acute kidney failure with tubular necrosis; D63.8 Anemia in other chronic diseases classified elsewhere; E11.22 Type 2 diabetes mellitus with diabetic chronic kidney disease; D64.9 Anemia, unspecified; E78.5 Hyperlipidemia, unspecified; I12.9 Hypertensive chronic kidney disease with stage 1 through stage 4 chronic kidney disease, or unspecified chronic kidney disease; N18.30 Chronic kidney disease, stage 3 unspecified; Z86.73 Personal history of transient ischemic attack (TIA), and cerebral infarction without residual deficits; Z98.890 Other specified postprocedural states; Z79.02 Long term (current) use of antithrombotics/antiplatelets; Z79.82 Long term (current) use of aspirin; Z79.4 Long term (current) use of insulin; Z79.899 Other long term (current) drug therapy; Z91.148 Patient's other noncompliance with medication regimen for other reason; Z87.81 Personal history of (healed) traumatic fracture; M89.8X9 Other specified disorders of bone, unspecified site; N18.32 Chronic kidney disease, stage 3b; N40.0 Benign prostatic hyperplasia without lower urinary tract symptoms; R29.701 NIHSS score 1; T50.8X5A Adverse effect of diagnostic agents, initial encounter; Y92.9 Unspecified place or not applicable; Z91.81 History of falling
CPT/HCPCS: 36415; 70450-TC; 70496-TC; 70498-TC; 70551-TC; 71045-TC; 76770-TC; 80048-TC; 80053-TC; 80061-TC; 80076-TC; 81001; 82550-TC; 82570-TC; 83735-TC; 83970; 84100-TC; 84155; 84165; 84300-TC; 84484-TC; 85025-TC; 85730-TC; 92526; 92611-TC; 97110-TC; 97116-TC; 97530-TC; 97535-TC; G0378; J0360; J1815; J2405; J2765; J3490; Q9967

== ENCOUNTER 2025-01-20 21:16 | Emergency (ER) | payer MEDICAID ==
[~2025-01-20] VITALS: Ht 170.2 cm; Wt 75.3 kg
[~2025-01-20 21:16] MED LIST changes: +DORZ10DR11 EACHEYE; -GABA-532 PO; +INSU100V7 SQ; -Insulin Glargine,Hum SQ
[2025-01-20] MEDS ORDERED: ONDANSETRON HCL/PF 4 MG/2 ML VIAL ONE (21:38)
[2025-01-20] MEDS: ONDANSETRON HCL/PF 4 MG/2 ML VIAL IVP ONE (21:57)
[2025-01-20] MEDS: IV LR 1000 ML 1,000 ML IV ONE (21:57)
[2025-01-20] MEDS: IV NS 0.9% 1,000 ML BAG IV ONE (21:57)
[2025-01-20 21:58] LABS: BASOPHILS # (AUTO) 0.1 K/uL (0.0-0.2); BASOPHILS % (AUTO) 0.9 % (0.0-2.0); EOSINOPHILS % (AUTO) 0.2 % (0.0-6.0); HEMATOCRIT 29 % (39-51); HEMOGLOBIN 10.4 g/dL (13.5-17.5); LYMPHOCYTES # (AUTO) 1.2 K/uL (0.8-4.8); MEAN CORPUSCULAR HEMOGLOBIN 30 PG (26.0-33.0); MEAN CORPUSCULAR HGB CONC 36 g/dl (31.0-36.0); MEAN CORPUSCULAR VOLUME 85 fL (80-96); MONOCYTES # (AUTO) 0.4 K/uL (0.1-1.30); MONOCYTES % (AUTO) 4.8 % (2.0-12.0); NEUTROPHILS % (AUTO) 80.1 % (43.0-81.0); PLATELET COUNT (AUTO) 297 K/uL (150-450); RED BLOOD CELL COUNT(AUTO) 3.46 MIL/uL (4.5-6.0); RED CELL DISTRIBUTION WIDTH 13.3 % (11.5-15.0); WHITE BLOOD COUNT (AUTO) 8.7 K/uL (4.3-11.0)
[2025-01-20 21:58] LABS: SITE, VBG VBG - N/A; VBG BASE EXCESS 5.9 mmol/L (-2.0-3.0); VBG COHb 0.3 % (0.5-1.5); VBG HCO3 29.8 mmol/L (22.0-29.0); VBG MetHb 0.1 % (0.5-1.5); VBG O2Hb 83.3 % (0-79); VBG OXYGEN SATURATION 83.6 % (60.0-85.0); VBG PCO2 40.4 mmHg (38.0-54.0); VBG PH 7.486 (7.320-7.430); VBG PO2 45.4 mmHg (23.0-48.0); VBG TOTAL HEMOGLOBIN 10.5 G/dL (13.5-17.5)
[2025-01-20 22:10] LABS: CALCIUM, SERUM 10.1 mg/dL (8.5-10.1); CREATININE 1.9 mg/dL (0.6-1.3); POTASSIUM 3.7 mmol/L (3.5-5.1)
[2025-01-20 22:15] LABS: ALBUMIN 3.2 g/dL (3.4-5.0); BILIRUBIN,DIRECT 0.1 mg/dL (0.0-0.2); BILIRUBIN,TOTAL 0.6 mg/dL (0.2-1.0)
[2025-01-20 22:42] LABS: APPEARANCE,URINE CLEAR (CLEAR); BILIRUBIN,URINE NEGATIVE (NEGATIVE); BLOOD, URINE TRACE-INTA Ery/uL (NEGATIVE); COLOR,URINE YELLOW (YELLOW); KETONES,URINE NEGATIVE (NEGATIVE); LEUKOCYTE ESTERASE ,URINE NEGATIVE (NEGATIVE); NITRITE, URINE NEGATIVE (NEGATIVE); PH,URINE 7.5 (5.0-8.0); PROTEIN,URINE 3+ mg/dl (NEGATIVE); UGLUCOSE 3+ mg/dL (NEGATIVE); UROBILINOGEN,URINE 0.2 EU/dL (0.2)
[2025-01-20 23:02] LABS: ADD URINE CULTURE YES; BACTERIA,URINE 1+ /HPF (None Seen); SQUAMOUS EPITHELIAL CELL,UR 0-2 /HPF (None Seen); WBC,URINE 0-2 /HPF (0-3)
[2025-01-20] MEDS ORDERED: INSULIN REGULAR, HUMAN 100 UNIT/ML 10 ML VIAL ONE (23:57)
[2025-01-21] MEDS: IV NS 0.9% 1,000 ML BAG IV ONE (00:01)
[2025-01-21] MEDS: INSULIN REGULAR, HUMAN 100 UNIT/ML 10 ML VIAL IV ONE (00:02)
[2025-01-21] MEDS ORDERED: ONDA4TAB5 PO (01:02)
[2025-01-21] MEDS ORDERED: MAG HYDROX/AL HYDROX/SIMETH 30 ML UDC ONE (01:55)
[2025-01-21] MEDS ORDERED: LIDOCAINE VISCOUS 2% UD 15 ML UDC ONE (01:55)
[2025-01-21] MEDS: LIDOCAINE VISCOUS 2% UD 15 ML UDC MM ONE (02:05)
[2025-01-21] MEDS: MAG HYDROX/AL HYDROX/SIMETH 30 ML UDC PO ONE (02:05)
[2025-01-21 02:06] VITALS: TEMP 98
[2025-01-21] MEDS ORDERED: METOCLOPRAMIDE HCL 10 MG/2 ML VIAL ONE (02:49)
[2025-01-21] MEDS: METOCLOPRAMIDE HCL 10 MG/2 ML VIAL IV ONE (02:52)
[2025-01-21 08:00] VITALS: BP 142/67; O2SAT 98
== END 2025-01-21 08:51 | disposition home or self-care (01) ==
LOC: ER 21:20
DX: R10.84 Generalized abdominal pain (principal); R11.2 Nausea with vomiting, unspecified; I10 Essential (primary) hypertension; E11.65 Type 2 diabetes mellitus with hyperglycemia; Z79.02 Long term (current) use of antithrombotics/antiplatelets; Z79.82 Long term (current) use of aspirin; Z79.899 Other long term (current) drug therapy; Z86.73 Personal history of transient ischemic attack (TIA), and cerebral infarction without residual deficits; Z91.148 Patient's other noncompliance with medication regimen for other reason
CPT/HCPCS: 99285; 74176; 96374; 71045; 96361 ×2; 93005; 82803 ×2; 85025; 80048; 82010; 83690; 80076; 81001; 36415; 82962 ×4; 96375; J1815; J2405; J3490; J7120; J7030 ×2; J2765; 87086-TC

== ENCOUNTER 2025-08-31 18:26 | Emergency (ER) | payer MEDICAID ==
[~2025-08-31] VITALS: Ht 170.2 cm; Wt 72.6 kg
[~2025-08-31 18:26] MED LIST changes: +ONDA4TAB5 PO
[2025-08-31] MEDS ORDERED: ONDANSETRON HCL/PF 4 MG/2 ML VIAL ONE (19:29)
[2025-08-31] MEDS ORDERED: KETOROLAC TROMETHAMINE 15 MG/ML VIAL ONE (19:29)
[2025-08-31] MEDS: KETOROLAC TROMETHAMINE 15 MG/ML VIAL IV ONE (19:34)
[2025-08-31] MEDS: ONDANSETRON HCL/PF 4 MG/2 ML VIAL IVP ONE (19:34)
[2025-08-31] MEDS: IV NS 0.9% 1,000 ML BAG IV ONE (19:34)
[2025-08-31 20:06] LABS: PLATELET COUNT (AUTO) 221 K/uL (150-450); RED BLOOD CELL COUNT(AUTO) 3.45 MIL/uL (4.5-6.0); RED CELL DISTRIBUTION WIDTH 13.5 % (11.5-15.0); WHITE BLOOD COUNT (AUTO) 8.7 K/uL (4.3-11.0)
[2025-08-31 20:18] LABS: CALCIUM, SERUM 9.1 mg/dL (8.5-10.1); CREATININE 3.3 mg/dL (0.6-1.3); SODIUM SERUM 147.0 mmol/L (136-145); UREA NITROGEN, BLOOD 43.0 mg/dL (7-18)
[2025-08-31] MEDS ORDERED: MORPHINE SULFATE INJ 4 MG/ML DISP.SYRIN ONE (20:25)
[2025-08-31] MEDS ORDERED: METOCLOPRAMIDE HCL 10 MG/2 ML VIAL ONE (20:26)
[2025-08-31 20:27] LABS: ASPARTATE AMINOTRANSFERASE 16.0 U/L (15-37); TOTAL PROTEIN, SERUM 7.7 g/dL (6.4-8.2)
[2025-08-31] MEDS: MORPHINE SULFATE INJ 2 MG/ML DISP.SYRIN IV ONE (20:33)
[2025-08-31] MEDS: METOCLOPRAMIDE HCL 10 MG/2 ML VIAL IV ONE (20:33)
[2025-08-31] MEDS ORDERED: ONDA4TAB5 PO (21:47)
[2025-08-31] MEDS ORDERED: FAMO-131 PO (21:47)
[2025-08-31 22:28] VITALS: BP 164/87; TEMP 98.5; O2SAT 99
== END 2025-08-31 22:29 | disposition home or self-care (01) ==
LOC: ER 18:47
DX: R10.30 Lower abdominal pain, unspecified (principal); R11.2 Nausea with vomiting, unspecified; I12.9 Hypertensive chronic kidney disease with stage 1 through stage 4 chronic kidney disease, or unspecified chronic kidney disease; E11.22 Type 2 diabetes mellitus with diabetic chronic kidney disease; N18.9 Chronic kidney disease, unspecified; Z79.899 Other long term (current) drug therapy; Z79.82 Long term (current) use of aspirin; Z79.02 Long term (current) use of antithrombotics/antiplatelets
CPT/HCPCS: 99285; 74176; 96374; 96375; 96361; 93005; 85025; 80048; 83690; 80076; 36415; J1885; J2270; J2765; J2405; J7030